=== PATIENT | female | born 1980 | race Caucasian/White ===

== ENCOUNTER → 2020-07-07 15:15 | Outpatient (BNVA) | payer MEDICAID, SELFPAY | PROVIDERS: Referring Provider Family Medicine; Visit Provider Internal Medicine | DX: E10.9 Type 1 diabetes mellitus without complications (principal); Z79.4 Long term (current) use of insulin | CPT/HCPCS: 99204 ==

== ENCOUNTER → 2020-07-29 15:45 | Outpatient (BNVA) | payer MEDICAID, SELFPAY | PROVIDERS: Visit Provider Obstetrics & Gynecology | DX: Z12.4 Encounter for screening for malignant neoplasm of cervix (principal) | CPT/HCPCS: 88175 ==

== ENCOUNTER → 2020-07-31 13:16 | Outpatient (BNVA) | payer MEDICAID, SELFPAY | PROVIDERS: Visit Provider Obstetrics & Gynecology | DX: Z20.828 Contact with and (suspected) exposure to other viral communicable diseases (principal) | CPT/HCPCS: 87635 ==

== ENCOUNTER 2020-08-06 11:16 | Observation (INO) | payer MEDICAID, SELFPAY ==
[2020-07-31 10:44] VITALS: BMI 23.8
--- NOTE | 2020-07-31 11:13 | ANES.PREANE2 ---
Pre-Anesthetic Assessment Pre-Anesthetic Assessment: Height/Weight: Height 1.37 m Weight 44.906 kg Preop Diagnosis: desired sterility. Proposed Procedure: Operation Date: 08/06/20 11:05 Proposed Procedures p bilateral Laparoscopic Tubal Fulguration 89387 z30.09(Bilateral) - Ruth Servin MD Familial anesthetic complications: none Was Beta Lynne taken within 24 hours: N/A Was Clonidine taken within 24 hours: N/A Social: Social History: No alcohol and No tobacco Exam: Pre-Anes Outpt Exam: alert, oriented x 3, clear to auscultation bilaterally and regular rate & rhythm Airway: Submandibular: WNL Cervical ROM: WNL MP: 1 Dentition: Full History/ROS: No significant history except as noted Pulmonary: Pulmonary: None reported CV/HEM: CV/HEM: None reported : : UTI and None reported Comments: urinary stoma. Hepatic: Hepatic: None reported GI: GI: None reported Metabolic: Metabolic: DM Comments: Type I diabetic. [facility]: Comments: spina bifida, AKA , wheelchair bound. Neuropsych: Neuropsych: Neuropathy Comments: patient states she has numbness and loss of motor function T10. Anesthetic Plan: ASA status: 3 Anesthesia: Anesthesia Evaluation and Local Only Other: Patient is requesting local only for procedure given spina bifida and numbness. Patient states she does not want a general anesthetic if avoidable. Risk of > 500 ml blood loss (7ml/kg in children): No PFSH Anesthesia PFSH: Medical History Fusion of spine of thoracic region Osteomyelitis Pressure sore Scoliosis Tethering of spinal cord Surgical History History of construction of external stoma of urinary system 01/2020 History of eye surgery Family History Family/Other Cancer maternal uncle, lung cancer Diabetes maternal uncle Grandfather Cancer skin cancer, paternal Family/Other Cancer maternal uncle, brain cancer Grandmother Diabetes maternal Denies family history of Ovarian cyst CAD (coronary artery disease) Clotting disorder Hyperlipidemia Chronic kidney disease (CKD) Anesthesia complication Bleeding disorder Hypertension Stroke Social History (Updated 07/29/20 @ 14:06 by MELANIE Covarrubias) Smoking and tobacco status: never smoked Second hand smoke exposure: Yes Alcohol intake: never Female Reproductive History: Date of last menstrual period: 06/29/20 Data Anesthesia Cardiac Studies: No Data to Display
[2020-08-06] VITALS (26 sets, daily range): BP systolic 102–129; BP diastolic 56–92; PULSE 90–128; RESP 15–18; TEMP 36.1–37.1; O2SAT 95–100
[2020-08-06 08:19] LABS: OR HCG Qualitative Urine Negative (Negative)
--- NOTE | 2020-08-06 08:44 | P.ANESUD_ITS ---
Pre-Anesthetic Update Pre-Anesthetic Assessment: Date of Surgery/Procedure: 08/06/20 Preop Linh gnosis: desires permanent sterilization Proposed Procedure: Operation Date: 08/06/20 09:20 Proposed Procedures p bilateral open Tubal Fulguration 77142 z30.09 12854(Bilateral) - Ruth Servin MD Any changes to Pre-Anesthetic Assessment?: No Last Intake: Intake Last Liquid Date 08/05/20 Last Liquid Time 23:00 Last Solid Date 08/05/20 Last Solid Time 19:30 Labs Last 48hrs: Laboratory Results - last 48 hr 08/06/20 07:49 Urine HCG, Qual Negative Vitals: Temperature 97.9 F 08/06/20 08:27 Temperature Source Temporal Artery S can 08/06/20 08:27 Pulse Rate 96 08/06/20 08:27 Respiratory Rate 16 08/06/20 08:27 Blood Pressure 124/92 08/06/20 08:27 Blood Pressure Linda n 102 08/06/20 08:27 Pulse Oximetry 99 08/06/20 08:27 Oxygen Delivery Me thod 08/06/20 08:27 Exam: Pre-Anes Outpt Exam: alert, oriented x 3, clear to auscultation bilaterally and regular rate & rhythm Cardiac Studies: No Data to Display
[2020-08-06 08:54] LABS: Glucose Point of Care 206 mg/dL (70-110)
[2020-08-06] MEDS: sodium chloride 0.9% 1,000 ML 30 ML IV ×2 (09:11→12:26)
--- NOTE | 2020-08-06 11:34 | PM.OP ---
Operative Report Date of procedure: August 06, 2020 Pre-op Diagnosis: desires permanent sterilization Post-op diagnosis: same Post-op Diagnosis: encased in adhesions. Post-op Findings: Severe bladder adhesions. Bladder encompassed every aspect of her pelvis. Uterus, tubes and ovaries Procedure Done: Left partial salpingectomy. small bladder dome repair. 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 Specimens removed/disposition: left parital fallopian tube Pathology: other Anesthesia: MAC Estimated blood loss (mL): 150 IV fluids (mL): 500 Urine output (mL): 200 Complications: Incidental cystotomy with repair. Unable to perform tubal ligation on right. Findings: Severe pelvic adhesions of bladder to entire pelvis including uterus and bowel. Right fallopian tube completely encased in bladder and adhesions. Uterus adhesed to bladder dome. Condition: stable Disposition: floor Procedure: The patient was taken to the operating room where monitored anesthesia was administered and found to be adequate. She was prepped and draped in the normal sterile fashion in the dorsal supine position. A Pfannenstiel skin incision was made and carried down to the underlying layer of fascia. The patient had a moderate amount of bleeding with every area that I cut. The fascia was tented up and the rectus muscles dissected off sharply. Hemostasis was achieved along the way. The peritoneum was entered bluntly with the digit. This incision was extended superiorly and inferiorly with good visualization of the bladder the left fallopian tube was anterior and adhesed to the bladder on the left. Using the vuoyant cautery well above the bladder the fallopian tube was clamped cauterized cut and removed. [place]ov[place] fashion I elevated the fimbria and clamped cauterized and removed the fimbria. There was excellent hemostasis. The bladder was completely covering the uterus. I was able to remove some filmy adhesions and mobilize it partially. As I removed one of the adhesions, it made a small hole in the bladder and urine started leaking. The bladder was extremely fragile. I clamped the hole with a Reyna clamp and the urine stop leaking. I closed the cystotomy with 3-0 Vicryl in a running fashion. I put a second imbricating layer of 3-0 Vicryl on top of that. I then moved on with the surgery. As I was attempting to locate the right tube and ovary, I noticed they were to large areas of aneurysm on the bladder. 1 on the left anterior the other on the posterior. The left anterior aneurysm, went down into the pelvis and I was concerned about another cystotomy if I probed any further. I oversewed the two aneurysms. Since she had so many adhesions, I placed surgicel on the rectus muscles. I closed the fasica with O-Vicryl in a running fashion. I closed the skin with absorbable. brigitte. A catheter was placed through her stoma with a lot of padding. Initially, the urine was bloody with some small clots, but the urine turned clear by recovery. She tolerated the procedure well. Sponge, lap and needle counts were correct times two. She was taken to recovery in stable condition.
[2020-08-06] MEDS: ondansetron 2 mg/ML SDV 2 mL 4 MG IVP (11:54)
[2020-08-06] MEDS: ketorolac 30 mg/mL INJ IVP (13:14)
--- NOTE | 2020-08-06 13:31 | ANE.PACU2 ---
Inpatient post-anesthesia follow up: Airway intact: Yes Vital signs: Temperature 97.7 F Pulse Rate 93 Respiratory Rate 18 Blood Pressure 117/82 Pulse Oximetry 98 Oxygen Delivery Me thod Room Air Oxygen Flow Rate 8 Fraction of Inspir ed Oxygen Hydration adequate: Yes Nausea and vomiting: No Pain level: 1 Mental status: Baseline
[2020-08-06] MEDS: acetaminophen 325 mg Tablet 650 MG PO (14:39)
[2020-08-06 14:49] LABS: Glucose Point of Care 236 mg/dL (70-110)
[2020-08-06] MEDS: enoxaparin 30 mg/0.3 mL Syringe SUBCUT (18:03)
[2020-08-06] MEDS: artificial tears Op Soln 15 mL Btl 1 DROP EYE-BOTH (18:50)
--- NOTE | 2020-08-06 19:05 | PC.NURSE ---
1845 Flushed pt parr with 120 mL of sterile water. Removed 60 mL. Pt had 500 mL urine after flush.
[2020-08-06 20:12] LABS: Glucose Point of Care 299 mg/dL (70-110)
[2020-08-06] MEDS: insulin glargine 100 units/1 mL 5 UNIT SUBCUT (20:45)
[2020-08-06] MEDS: lactated ringers 1,000 ML 50 ML IV (22:38)
--- NOTE | 2020-08-07 00:58 | PC.NURSE ---
0045 When attempting to empty patient's catheter, sign writer hand noted collection bag was empty and catheter was not draining. Health Center Manager irrigated catheter with 120 mls of sterile water, and removed 60mls. Patient tolerated well, with no complaints of discomfort. Catheter then began to drain, and patient had 400 mls of urine drained via catheter.
[2020-08-07 04:32] LABS: Hematocrit 30.7 % (37.0-47.0); Hemoglobin 10.1 g/dL (11.5-15.3); Mean Corpuscular HGB Conc 32.9 g/dL (30.0-36.0); Mean Corpuscular Hemoglobin 28.5 pg (28.0-34.0); Mean Corpuscular Volume 86.5 fL (81-99); Mean Platelet Volume 12.2 fL (7.4-10.4); Platelet Count 209 10^3/cmm (130-400); Red Blood Count 3.55 10^6/uL (4.1-5.3); Red Cell Distribution Width 15.8 % (12.1-15.1); White Blood Count 5.5 10^3/uL (4.0-10.0)
[2020-08-07] MEDS: HYDROcodone-acetaminophen 5-325 mg Tablet PO (04:32)
[2020-08-07 04:45] VITALS: BP 99/64; PULSE 112; RESP 17; TEMP 36.6; O2SAT 100
--- NOTE | 2020-08-07 04:55 | PC.NURSE ---
0445 When emptying patient's catheter, magazine writer noted scant amount of urinary output since last emptying two hours ago. Marketing Project Lead irrigated catheter with 120 mls of sterile water, and removed 60mls. Thick, chunky white sediment was noted in urine with irrigation. Patient tolerated well, with no complaints of discomfort. Catheter began draining better following irrigation, and patient had 200 mls of urine drained via catheter.
[2020-08-07 07:12] LABS: Glucose Point of Care 148 mg/dL (70-110)
[2020-08-07] MEDS: insulin glargine 100 units/1 mL 10 UNIT SUBCUT (07:44)
[2020-08-07 10:17] VITALS: BP 107/66; PULSE 115; RESP 17; TEMP 36.9; O2SAT 98
--- NOTE | 2020-08-07 11:52 | PM.DCS ---
Discharge Providers Date of Admission: 08/06/20 11:16 Date of Discharge: August 07, 2020 Attending Provider at Admission: Ruth Servin MD Attending Provider at Discharge: Ruth Servin MD Diagnoses at Discharge Discharge Diagnosis (1) Postoperative state: Status: Acute (2) Long-term insulin use: Status: Acute (3) Amputation above knee: Status: Acute (4) Sterilization consult: Status: Acute (5) Spina bifida: Status: Acute (6) Diabetes type I: Status: Acute Reason for Visit Reason for Visit: bilateral tubal fulguration Hospital Course Hospital Course The patient was admitted for surgery. She had an incidental cystotomy during the procedure. the bladder was repaired and a parr catheter was placed through her stoma. She had clear urine from post op until discharge and only had bloody urine directly after placement of the parr catheter. She had lovenox started POD 0 in the pm and will continue for 2 weeks post op due to the patient's inability to ambulate. She did well postoperatively and she was ready for discharge on day #1 POD#1 The patient is doing well this morning. She has tolerated a regular diet. Her pain is well controlled. She has been making good urine output. Her incision is clean/dry and intact. She received lovenox at 1800 hours last night. She is ready for discharge. Physical Exam Const: COMMON NORMALS: no acute distress, average body habitus, patient oriented x3, alert and well nourished GENERAL APPEARANCE: cooperative, comfortable, well kempt and well developed ORIENTATION/CONSCIOUSNESS: Yes awake, Yes oriented to person, Yes oriented to place and Yes oriented to time Resp: COMMON NORMALS: No use of accessory muscles EFFORT & INSPECTION: Yes able to speak in complete sentences GI: COMMON NORMALS: Soft to palpation and non-tender INSPECTION: Yes normal to inspection PALPATION: Yes Soft to palpation Neuro: COMMON NORMALS: patient oriented x3 SENSORIUM/ORIENTATION: Yes alert, Yes oriented to person, Yes oriented to place and Yes oriented to time Psych: APPEARANCE: Yes well kempt Skin: WOUNDS: Yes surgical site (clean/dry/intact) Urinary Catheter Management^: Parr: Cath Placed During This Visit: no Reason for Continuing Indwelling Catheter: Perioperative Use in Selected Surgeries Discharge Data Data Completed and Pending: Pending at discharge Category Date Time Status Pathology: Surgic al [PTH] Routine Pth 08/06/20 11:14 Received Labs from last 24 hours 08/07/20 08/07/20 08/06/20 07:09 04:22 20:07 WBC 5.5 RBC 3.55 L Hgb 10.1 L Hct 30.7 L MCV 86.5 MCH 28.5 MCHC 32.9 RDW 15.8 H Plt Count 209 MPV 12.2 H POC Glucose 148 H 299 H 08/06/20 14:42 WBC RBC Hgb Hct MCV MCH MCHC RDW Plt Count MPV POC Glucose 236 H Vitals: Last Vital Signs Temp 97.8 F 08/07/20 04:45 Pulse 112 H 08/07/20 04:45 Resp 17 08/07/20 04:45 BP 99/64 08/07/20 04:45 Pulse Ox 100 08/07/20 04:45 Discharge Plan Discharge Patient Disposition: Home Condition: Stable Prescriptions: New hydrocodone-acetaminophen 5-325 mg Tablet 1 tab PO Q6H PRN (Reason: Moderate To Severe Pain) Qty: 14 RF: 0 enoxaparin 30 mg/0.3 mL Syringe 30 mg SUBCUT Q24H 14 Days Qty: 4.2 RF: 0 Continued One-A-Day Women's Complete 18 mg-400 mcg- 25 mcg tablet 1 tab PO DAILY RF: 0 calcium citrate-vitamin D3 [Citracal + D Maximum] 315 mg-6.25 mcg (250 unit) tablet 4 tab PO DAILY RF: 0 esomeprazole magnesium 20 mg capsule,delayed release(DR/EC) 60 mg PO DAILY RF: 0 turmeric 400 mg capsule 800 mg PO DAILY RF: 0 cholecalciferol (vitamin D3) 250 mcg (10,000 unit) capsule 250 mcg PO DAILY RF: 0 potassium gluconate 600 mg (99 mg) tablet 1,800 mg PO DAILY RF: 0 zinc 50 mg tablet 50 mg PO DAILY RF: 0 biotin 5 mg capsule 5 mg PO DAILY RF: 0 oregano oil 1,500 mg capsule 1,500 mg PO DAILY RF: 0 ferrous sulfate 325 mg (65 mg iron) tablet 325 mg PO DAILY RF: 0 B-complex with vitamin C [Super B Complex-Vitamin C] Tablet 1 tab PO DAILY RF: 0 vitamin B complex [B Complex-Vitamin B12] Tablet 1 tab PO DAILY RF: 0 vitamin E 200 unit capsule 200 unit PO DAILY RF: 0 insulin aspart U-100 [Novolog Flexpen U-100 Insulin] 100 unit/mL (3 mL) insulin pen See Rx Instructions SUBCUT TID Qty: 15 RF: 3 Lantus Solostar U-100 Insulin 100 unit/mL (3 mL) insulin pen 10 unit SUBCUT BID Qty: 18 RF: 3 (DME) pen needle, diabetic [BD Polina 2nd Gen Pen Needle] 32 gauge x 5/32 needle See Rx Instructions .ROUTE .MEDSUPPLY Qty: 360 RF: 3 (DME) FreeStyle Test Strip See Rx Instructions .ROUTE .MEDSUPPLY Qty: 100 RF: 0 (DME) lancets [BD Ultra Fine Lancets] 33 gauge misc See Rx Instructions .ROUTE .MEDSUPPLY Qty: 100 RF: 0 (DME) blood-glucose meter [OneTouch Verio Meter] Misc See Rx Instructions .ROUTE .MEDSUPPLY Qty: 1 RF: 0 (DME) OneTouch Verio test strips Strip See Rx Instructions .ROUTE .MEDSUPPLY Qty: 360 RF: 0 (DME) lancets [OneTouch Delica Lancets] 33 gauge misc See Rx Instructions .ROUTE .MEDSUPPLY Qty: 360 RF: 0 Discharge Orders: Discharge Order (Routine); Ordered 08/07/20 Ordered By: Ruth Servin Referrals: [facility] [Other] (Please Call and ask for Hilda so [facility] Home Services can be established for you. ) Ruth Servin MD [Physician] - 08/12/20 1:00 pm (Your 1 week appointment is scheduled for 08/12/20 at 1:00 pm. Your 6 week appointment is scheduled for 09/09/20 at 12:45 pm.) John Aguillon MD [Referring] - 08/13/20 10:45 am (Please show up to your appointment at 10:45 AM. Bring medical cards and I.D. Your medical ride has been set up to transport you to and from this [place]. [place] [id number]. Transport will be at your home any time between 9:30 AM and 9:45 AM. [facility] medicaid ID number [id number]) Patient Instructions: Open Salpingo-oophorectomy (DC), OB Discharge Report, Opioid Safety, Post Anesthesia Care Discharge Attestations Time Spent in Discharge Care*: less than 30 min Quality Metrics Clinical Quality Measures During this hospital stay, did patient experience: None Coding Level of Care Code Acute Chg FW DC note Diagnoses Postoperative state Z98.890 Long-term insulin use Z79.4 Amputation above knee S78.119A Sterilization consult Z30.09 Spina bifida Q05.9 Diabetes type I E10.9
[2020-08-07 12:06] LABS: Glucose Point of Care 220 mg/dL (70-110)
[2020-08-07 14:30] VITALS: BP 115/72; PULSE 108; RESP 17; TEMP 37.1; O2SAT 99
[2020-08-07 15:00] VITALS: BP 115/72; PULSE 108; RESP 17; TEMP 37.1; O2SAT 99
== END 2020-08-07 15:00 | disposition home or self-care (01) ==
LOC: OBGYN 11:16
PROVIDERS: Anesthesiology; Admitting Provider Obstetrics & Gynecology; Visit Provider Obstetrics & Gynecology
PROC: (CPT 58670; principal; 2020-08-06 09:10)
DX: Z30.2 Encounter for sterilization (principal); N32.89 Other specified disorders of bladder; E10.9 Type 1 diabetes mellitus without complications; Z79.4 Long term (current) use of insulin; S78.119A Complete traumatic amputation at level between unspecified hip and knee, initial encounter; X58.XXXA Exposure to other specified factors, initial encounter; Q05.9 Spina bifida, unspecified; Z30.09 Encounter for other general counseling and advice on contraception
CPT/HCPCS: 58700; 36415; 36416; 82962; 84703; 85027; 88302; 96372; C9290; G0378; J0690; J1100; J1650; J1815 ×2; J1885; J2250; J2405; J2704; J3010; J3490; J7030

== ENCOUNTER 2020-08-11 16:58 | Observation (INO) | payer MEDICAID, SELFPAY ==
[2020-08-11 17:36] VITALS: BP 105/68; PULSE 123; RESP 18; TEMP 37.2; O2SAT 99; BMI 24.0
--- NOTE | 2020-08-11 19:46 | W.ED.FEMALGU ---
HPI - Female Genitourinary General: Chief complaint: Urogenital-Female Stated complaint: POST OP COMPLICATIONS Time Seen by Provider: 08/11/20 18:34 History of Present Illness: HPI Narrative: 40-year-old female presents with complications of at indwelling [place] and a urinary stoma. Patient has an extensive urinary tract surgical history with bladder made out of intestine. Patients stoma was not draining correctly and a Houston was placed a few days ago. The Houston was not draining last night and they presented to ER in [facility] and had a exchange. She had issues once again today. She called her surgeon who instructed her to come to the office but there was a misunderstanding came to the ER. Discussed with Dr. Servin who would like the Houston exchanged if possible. Date of Last Menstrual Period: 08/06/20 Review of Systems Const: Denies: fever(s) or chills Card: Denies: chest pain or palpitations Resp: Denies: dyspnea or productive cough GI: Reports: other (Please see HPI) : Denies: other (Please see HPI) PFSH ED PFSH: Medical History Fusion of spine of thoracic region Osteomyelitis Pressure sore Scoliosis Tethering of spinal cord Surgical History History of construction of external stoma of urinary system 01/2020 History of eye surgery Family History Family/Other Cancer maternal uncle, lung cancer Diabetes maternal uncle Grandfather Cancer skin cancer, paternal Family/Other Cancer maternal uncle, brain cancer Grandmother Diabetes maternal Denies family history of Ovarian cyst CAD (coronary artery disease) Clotting disorder Hyperlipidemia Chronic kidney disease (CKD) Anesthesia complication Bleeding disorder Hypertension Stroke Social History Smoking and tobacco status: never smoked Second hand smoke exposure: Yes Alcohol intake: never Female Reproductive History: Date of last menstrual period: 08/06/20 Course Vital Signs: Vital signs: Vital Signs Temperature 99.0 F 08/11/20 17:36 Pulse Rate 123 H 08/11/20 17:36 Respiratory Rate 18 08/11/20 17:36 Blood Pressure 105/68 08/11/20 17:36 Pulse Oximetry 99 08/11/20 17:36 MDM - Female MDM Narrative: Medical decision making narrative: Discussed case with Dr. Servin. Due to patient's complicated surgical history and seroma versus abscess in her lower abdominal wall. We will admit her for observation. She will recheck on her in the morning and determine further management at that time Imaging Data: CT Abd/Pel: Radiologist's impression: CT/CT abdomen pelvis wo con [id number] IMPRESSION: 1. A transabdominal catheter is present within the bladder lumen. The bladder lumen is mostly collapsed around the catheter with a small amount of fluid and air in the bladder. 2. Trace free fluid in the lower abdomen/pelvis most likely secondary to the peritoneal shunt and recent postsurgical changes. 3. Trace free air in the lower abdomen/pelvis likely postsurgical. 4. A nonspecific fluid collection within the superficial fat of the lower abdominal wall likely reflecting postoperative seroma. Abscess is also possible in the appropriate clinical setting. 5. Lobulated , thickened soft tissue at the anus is indeterminate on CT. Discharge Plan Discharge Patient Disposition: Placed in Observation Clinical Impression: Postoperative state Condition: Stable Prescriptions: No Action One-A-Day Women's Complete 18 mg-400 mcg- 25 mcg tablet 1 tab PO DAILY@0900 RF: 0 calcium citrate-vitamin D3 [Citracal + D Maximum] 315 mg-6.25 mcg (250 unit) tablet 4 tab PO DAILY@0900 RF: 0 turmeric 400 mg capsule 800 mg PO DAILY@0900 RF: 0 cholecalciferol (vitamin D3) 250 mcg (10,000 unit) capsule 250 mcg PO DAILY@0900 RF: 0 potassium gluconate 600 mg (99 mg) tablet 1,800 mg PO DAILY@0900 RF: 0 zinc 50 mg tablet 50 mg PO DAILY@0900 RF: 0 biotin 5 mg capsule 5 mg PO DAILY@0900 RF: 0 oregano oil 1,500 mg capsule 1,500 mg PO DAILY@0900 RF: 0 ferrous sulfate 325 mg (65 mg iron) tablet 325 mg PO DAILY@0900 RF: 0 B-complex with vitamin C [Super B Complex-Vitamin C] Tablet 1 tab PO DAILY@0900 RF: 0 vitamin B complex [B Complex-Vitamin B12] Tablet 1 tab PO DAILY@0900 RF: 0 vitamin E 200 unit capsule 200 unit PO DAILY@0900 RF: 0 insulin aspart U-100 [Novolog Flexpen U-100 Insulin] 100 unit/mL (3 mL) insulin pen See Rx Instructions SUBCUT TID Qty: 15 RF: 3 (DME) pen needle, diabetic [BD Polina 2nd Gen Pen Needle] 32 gauge x 5/32 needle See Rx Instructions .ROUTE .MEDSUPPLY Qty: 360 RF: 3 (DME) FreeStyle Test Strip See Rx Instructions .ROUTE .MEDSUPPLY Qty: 100 RF: 0 (DME) lancets [BD Ultra Fine Lancets] 33 gauge misc See Rx Instructions .ROUTE .MEDSUPPLY Qty: 100 RF: 0 (DME) blood-glucose meter [OneTouch Verio Meter] Misc See Rx Instructions .ROUTE .MEDSUPPLY Qty: 1 RF: 0 (DME) OneTouch Verio test strips Strip See Rx Instructions .ROUTE .MEDSUPPLY Qty: 360 RF: 0 (DME) lancets [OneTouch Delica Lancets] 33 gauge misc See Rx Instructions .ROUTE .MEDSUPPLY Qty: 360 RF: 0 hydrocodone-acetaminophen 5-325 mg Tablet 1 tab PO Q6H PRN (Reason: Moderate To Severe Pain) Qty: 14 RF: 0 enoxaparin 30 mg/0.3 mL Syringe 30 mg SUBCUT Q24H 14 Days Qty: 4.2 RF: 0 magnesium 1 tab PO DAILY@0900 RF: 0 Lantus Solostar U-100 Insulin 100 unit/mL (3 mL) insulin pen See Rx Instructions .ROUTE .COMPLEX RF: 0 Discharge Diet: Usual diet Discharge Activity: Resume usual activity Coding Level of Care Code ED Wire Galvanizer for Quangg Denilson
--- NOTE | 2020-08-11 20:15 | CTR_ITS ---
PROCEDURE INFORMATION: Exam: CT Abdomen And Pelvis Without Contrast Exam date and time: 08/11/2020 8:35 PM Age: 40 years old Clinical indication: Abdominal pain; Localized; Lower; Prior surgery; Surgery type: Lumbar fusion. Indwelling parr. Urinary stoma. ; Patient HX: Patient had indwellling parr placed on 08/06/2020. States no urinary output and C/O pelvic pain. ; Additional info: Recent bladder surgery, concerns for leakage, rupture TECHNIQUE: Imaging protocol: Computed tomography of the abdomen and pelvis without contrast. Radiation optimization: All CT scans at this facility use at least one of these dose optimization techniques: automated exposure control; mA and/or kV adjustment per patient size (includes targeted exams where dose is matched to clinical indication); or iterative reconstruction. COMPARISON: No relevant prior studies available. RADIATION DOSE METRICS: Total DLP (mGy-cm): 894.36 FINDINGS: Tubes, catheters and devices: Peritoneal shunt catheter tubing noted. Lungs: The visualized lung bases are clear. Liver: Normal size and density. No focal mass. Gallbladder and bile ducts: No intrahepatic or extrahepatic biliary dilitation. No calcified stones. Pancreas: No evidence of mass. No ductal dilation. Spleen: No splenomegaly or mass. Adrenal glands: Normal. Kidneys and ureters: No stones or hydronephrosis. No evidence of focal mass. Stomach and bowel: A large amount of formed stool throughout the colon. Suture line noted in the proximal colon. No signs of obstruction. No significant diverticula. Appendix: No evidence of appendicitis. Intraperitoneal space: Suspected trace free air in the lower, anterior abdomen/pelvis. Trace free fluid in the abdomen/pelvis. No evidence abscess. Vasculature: No concerning abnormalities. Lymph nodes: No lymphadenopathy. Urinary bladder: The urinary bladder is collapsed around a transabdominal catheter. There is a small amount of air in the bladder. Reproductive: Normal CT appearance for age. Bones/joints: Status post lumbar fusion with severe scoliosis. 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 Soft tissues: Postsurgical changes of the lower abdominal wall. Trace free air within the subcutaneous soft tissues of the abdominal wall. Small amount of fat stranding and an approximately 2 x 1.2 x 11 cm (SAT) superficial fluid collection. Lobulated irregular soft tissue around the anus. CT/CT abdomen pelvis wo con [id number] IMPRESSION: 1. A transabdominal catheter is present within the bladder lumen. The bladder lumen is mostly collapsed around the catheter with a small amount of fluid and air in the bladder. 2. Trace free fluid in the lower abdomen/pelvis most likely secondary to the peritoneal shunt and recent postsurgical changes. 3. Trace free air in the lower abdomen/pelvis likely postsurgical. 4. A nonspecific fluid collection within the superficial fat of the lower abdominal wall likely reflecting postoperative seroma. Abscess is also possible in the appropriate clinical setting. 5. Lobulated , thickened soft tissue at the anus is indeterminate on CT. Radiation Dose CTDIVOL = (mGy): DLP = 894.36 (mGy-cm)
--- NOTE | 2020-08-11 22:25 | PC.NURSE ---
Spoke with Abel Felix and Dr. Bedolla. Approval for pt mother/caregiver to stay overnight outside of visiting hours due to pt being total care.
[2020-08-11 22:41] LABS: Basophils % 0.2 %; Eosinophils % 0.2 %; Hematocrit 30.6 % (37.0-47.0); Hemoglobin 9.5 g/dL (11.5-15.3); Lymphocytes # 1.2 10^3/uL (0.8-4.8); Lymphocytes % 12.6 %; Mean Corpuscular Hemoglobin 28.1 pg (28.0-34.0); Mean Corpuscular Volume 90.5 fL (81-99); Monocytes # 0.8 10^3/uL (0.2-0.9); Monocytes % 8.8 %; Neutrophils # 7.11 10^3/uL (1.8-7.7); Neutrophils % 77.8 %; Nucleated Red Blood Cells % 0 %; Platelet Count 222 10^3/cmm (130-400); Red Blood Count 3.38 10^6/uL (4.1-5.3); Red Cell Distribution Width 16.4 % (12.1-15.1); White Blood Count 9.1 10^3/uL (4.0-10.0)
[2020-08-11 22:44] VITALS: PULSE 122; RESP 16; O2SAT 98
[2020-08-11 22:54] LABS: Anion Gap 23.3 (5-19); Blood Urea Nitrogen 9 mg/dL (6-20); Carbon Dioxide 13 mmol/L (22-29); Chloride 100 mmol/L (98-107); Creatinine Clr Calc Pharmacy 178.4961; Glomerular Filtration Rate 246.4 mL/min (90-130); Glucose 188 mg/dL (65-115); Osmolality Calculated 280 mOsm/kg (285-295); Potassium 3.3 mmol/L (3.5-5.1); Sodium 133 mmol/L (136-145)
--- NOTE | 2020-08-11 22:56 | PC.NURSE ---
pt report called to Juli VILLAVICENCIO in SBAR format.
[2020-08-11 23:26] VITALS: BP 99/67; PULSE 117; RESP 18; TEMP 37.2; O2SAT 97
[2020-08-12] MEDS: HYDROcodone-acetaminophen 5-325 mg Tablet PO ×2 (00:20→12:27)
[2020-08-12] MEDS: lactated ringers 1,000 ML 75 ML IV (00:21)
--- NOTE | 2020-08-12 00:45 | PC.NURSE ---
pt stated to nurse that she takes Lantus 10 U in the AM and 5U in the PM, Novalog 1 unit for every 50 > 150 plus 1 Unit for every 10 grams of carbohydrates at breakfast and lunch and 1 unit for every 12 grams of carbohydrates at dinner. Blood sugar checks are done Morning, AC and HS. Pt stated that she did not want to take her Lantus tonight since she had not ate today.
--- NOTE | 2020-08-12 00:53 | PC.NURSE ---
Left leg and and partial pelvis amputation
[2020-08-12 03:40] VITALS: BP 99/65; PULSE 109; RESP 18; O2SAT 98
[2020-08-12 07:22] LABS: Glucose Point of Care 226 mg/dL (70-110)
[2020-08-12] MEDS: insulin glargine 100 units/1 mL 10 UNIT SUBCUT (07:31)
--- NOTE | 2020-08-12 08:58 | P.HP_ITS ---
Providers/Chief Complaint Admitting Physician: Ruth Servin MD Chief Complaint: POST OP COMPLICATIONS History of Present Illness Mary Anne Israel is a 40 year old female who had surgery on 08/06/20. She had a tubal ligation. She has had extensive bladder and pelvic surgeries and during my surgery, she was noted to have extensive bladder adhesions as well as two areas of bladder aneurysm. She also had a very small cystotomy during my procedure. The cystotomy was repaired in a double layer closure and the aneurysms were oversewn to reinforce them. She went home on Post op day #1 and was doing very well. She reports that on Monday, they took a trip to [place] for an appointment. She was in the car for 6 hours and when she returned, she noticed that her abdomen was distended and her catheter had stopped draining urine. She went to her local ER and they replaced the catheter and it was draining clear urine again. But, not long after that, the catheter stopped draining again. They became very concerned. Her abdomen was distended, the catheter wasn't draining and I asked her to come to the office for evaluation. She went to the ER, due to being after hours at the clinic. The catheter was replaced, but there was no urine returned. A CT scan showed that everything appeared normal except a seroma was present in the bladder. The patient states that she continues to take her lovenox and that her pain has been well controlled, only taking a few of her pain medications. She typically stays pretty constipated as this makes it easier for her due to mobility. Review of Systems General: Reports: 10 or more systems reviewed and unremarkable except in HPI and below Medications/Allergies Home Medications Medication Instructions Recorded Confirmed Last Taken Type biotin 5 mg capsule 5 mg PO DAILY@0900 06/22/20 08/11/20 08/10/20 History calcium citrate 315 mg 4 tab PO DAILY@0900 tab 06/22/20 08/11/20 08/10/20 History calcium-vitamin D3 6.25 mcg (250 unit) tablet cholecalciferol (vitamin D3) 250 250 mcg PO DAILY@0900 06/22/20 08/11/20 08/10/20 History mcg (10,000 unit) capsule yarwenbu-dlzovhw-rxxh-iron 18 1 tab PO DAILY@0900 tab 06/22/20 08/11/20 08/10/20 History mg-FA 400 mcg-vit K 25 mcg tablet potassium gluconate 600 mg (99 mg) 1,800 mg PO DAILY@0900 tab 06/22/20 08/11/20 08/10/20 History tablet turmeric 400 mg capsule 800 mg PO DAILY@0900 cap 06/22/20 08/11/20 08/10/20 History zinc 50 mg tablet 50 mg PO DAILY@0900 06/22/20 08/11/20 08/10/20 History B-complex with vitamin C 1 tab PO DAILY@0900 07/07/20 08/11/20 08/10/20 History ferrous sulfate 325 mg (65 mg 325 mg PO DAILY@0900 07/07/20 08/11/20 08/10/20 History iron) tablet insulin aspart U-100 100 unit/mL See Rx Instructions SUBCUT TID #15 07/07/20 08/11/20 08/10/20 Rx (3 mL) subcutaneous pen ml oregano oil 1,500 mg capsule 1,500 mg PO DAILY@0900 cap 07/07/20 08/11/20 08/10/20 History pen needle, diabetic 32 gauge x #360 ea 07/07/20 08/11/20 Unknown Rx vitamin B complex 1 tab PO DAILY@0900 07/07/20 08/11/20 08/10/20 History vitamin E 200 unit capsule 200 unit PO DAILY@0900 07/07/20 08/11/20 08/10/20 History blood sugar diagnostic #100 ea 07/10/20 08/11/20 Unknown Rx blood sugar diagnostic #360 ea 07/10/20 08/11/20 Unknown Rx blood-glucose meter #1 ea 07/10/20 08/11/20 Unknown Rx lancets 33 gauge #100 ea 07/10/20 08/11/20 Unknown Rx lancets 33 gauge #360 ea 07/10/20 08/11/20 Unknown Rx enoxaparin 30 mg SUBCUT Q24H 14 Days #4.2 ml 08/07/20 08/11/20 08/09/20 Rx hydrocodone-acetaminophen 1 tab PO Q6H PRN #14 tab 08/07/20 08/11/20 Unknown Rx Lantus Solostar U-100 Insulin See Rx Instructions .ROUTE .COMPLEX 04/08/11/20 08/10/20 History magnesium 1 tab PO DAILY@0900 08/11/20 08/11/20 08/10/20 History Allergies Allergy/AdvReac Type Severity Reaction Status Date / Time latex Allergy rash, Verified 08/11/20 17:35 itchy eyes, respiratory symptoms levofloxacin [From Levaquin] Allergy hair loss, Verified 08/11/20 17:35 stomach upset vancomycin AdvReac red man Verified 08/11/20 17:35 syndrome PFSH Acute PFSH: Medical History Fusion of spine of thoracic region Osteomyelitis Pressure sore Scoliosis Tethering of spinal cord Surgical History History of construction of external stoma of urinary system 01/2020 History of eye surgery Family History Family/Other Cancer maternal uncle, lung cancer Diabetes maternal uncle Grandfather Cancer skin cancer, paternal Family/Other Cancer maternal uncle, brain cancer Grandmother Diabetes maternal Denies family history of Ovarian cyst CAD (coronary artery disease) Clotting disorder Hyperlipidemia Chronic kidney disease (CKD) Anesthesia complication Bleeding disorder Hypertension Stroke Social History Smoking and tobacco status: never smoked Second hand smoke exposure: Yes Alcohol intake: never Female Reproductive History: Date of last menstrual period: 08/06/20 Vitals/I&O/Wt Last Vital Signs Temp 98.9 F 08/11/20 23:26 Pulse 109 H 08/12/20 03:40 Resp 18 08/12/20 03:40 BP 99/65 08/12/20 03:40 Pulse Ox 98 08/12/20 03:40 08/11/20 08/12/20 08/12/20 22:59 06:59 14:59 Output Total 875 / 875 150 / 150 Balance -875 / -875 -150 / -150 Weight last 48 hrs Weight 100 lb Physical Exam Const: COMMON NORMALS: no acute distress, average body habitus, patient oriented x3, no limitations, alert and well nourished GENERAL APPEARANCE: cooperative, comfortable, well kempt and well developed ORIENTATION/CONSCIOUSNESS: Yes awake, Yes oriented to person, Yes oriented to place and Yes oriented to time Resp: COMMON NORMALS: normal respiratory effort EFFORT & INSPECTION: Yes able to speak in complete sentences GI: INSPECTION: Yes abdominal wall ecchymosis (bruising near incision), Yes abdominal distension, Yes incision Inspection of incision: healing well (well reapproximated and healing nicely) and Yes GI ostomy present (urinary ostomy in RUQ) Urinary Catheter Management^: Suprapubic: Cath Placed During This Visit: no Reason for Continuing Indwelling Catheter: Chronic Indwelling Urinary Catheter on Admission Data : 08/11/20 22:25 08/11/20 22:25 A&P Assessment and plan (1) Postoperative state: Patient having issues with catheter getting clogged. The patient has part of her bladder make from intestine. There is a lot of mucous produced and she needs to flush it frequently. Due to her trip on Monday, she may not have flushed as often as she did at home and that may have been why it clogged. The catheter IS draining urine now at about 100 ml/hr. There is a seroma present and I plan to speak with Dr Miner about this in the AM. Patient will be admitted for observation since this is her second ER visit in a day. I want to watch her urine output and assess how she does. Status: Acute Attestations Medical Necessity Statement*: The patient will be admitted for observation for postop complication. Coding Level of Care Code Acute Corrugator Helper for Alan Oreilly Diagnoses Postoperative state Z98.890
[2020-08-12 09:16] VITALS: BP 104/72; PULSE 125; RESP 16; TEMP 36.2
--- NOTE | 2020-08-12 09:18 | PM.OBGYDC ---
Discharge Providers DISTRIBUTOR SALES CONSULTANT Date of Admission: 08/11/20 21:48 Date of Discharge: 08/14/20 Attending Provider at Admission: Ruth Servin MD Attending Provider at Discharge: Ruth Servin MD Diagnoses at Discharge Discharge Diagnosis (1) Postoperative state: Status: Acute Reason for Visit Reason for Visit: POST OP COMPLICATIONS Hospital Course Hospital Course The patient was admitted from the ER with complaints of her catheter wasn't draining. She had been on a six hour car trip, the day before. Earlier today, she had noticed that her catheter wasn't draining. She went to her local ER and they replaced the catheter. it was working fine and then stopped draining again. At the same time, she noticed that her abdomen was getting rigid. Her mother was convinced that her abdomen was filling up with urine. She came to the ER. The catheter was replaced, but there was no return. She had a CT scan performed which showed a seroma in her incision and a lot of stool in her colon. I was told that she had a seroma in her bladder. She was admitted overnight to consult with urology in the AM. I rounded on the patient and examined her. Her abdomen was rigid due to stool. Her incision was clean/dry and intact. Her catheter was draining about 100-150 ml per hour. She was very stable and no reason to do anything further. She was discharged home in stable condition to follow up next week for catheter removal. Physical Exam Const: COMMON NORMALS: no acute distress, average body habitus, patient oriented x3, alert and well nourished GENERAL APPEARANCE: cooperative, comfortable, well kempt and well developed ORIENTATION/CONSCIOUSNESS: Yes awake, Yes oriented to person, Yes oriented to place and Yes oriented to time Resp: COMMON NORMALS: normal respiratory effort EFFORT & INSPECTION: Yes able to speak in complete sentences Neuro: COMMON NORMALS: patient oriented x3 SENSORIUM/ORIENTATION: Yes alert, Yes oriented to person, Yes oriented to place and Yes oriented to time Psych: APPEARANCE: Yes well kempt Skin: WOUNDS: Yes surgical site (clean/dry and intact. stoma pink) Urinary Catheter Management^: Suprapubic: Cath Placed During This Visit: no Reason for Continuing Indwelling Catheter: Chronic Indwelling Urinary Catheter on Admission Discharge Data Data Completed and Pending: Completed Studies During Hospitalization Category Date Time Status CT abdomen pelvis wo con [id number] Urge nt Cat Scan 08/11/20 20:15 Completed Labs from last 24 hours 08/12/20 08/11/20 08/11/20 07:18 22:25 22:25 WBC 9.1 RBC 3.38 L Hgb 9.5 L Hct 30.6 L MCV 90.5 MCH 28.1 MCHC 31.0 RDW 16.4 H Plt Count 222 MPV 12.0 H Neut % (Auto) 77.8 Lymph % (Auto) 12.6 [place] % (Auto) 8.8 Eos % (Auto) 0.2 Baso % (Auto) 0.2 Neut # (Auto) 7.11 Lymph # (Auto) 1.2 [place] # (Auto) 0.8 Eos # (Auto) 0.0 Baso # (Auto) 0.0 Nucleated RBC % (a uto) 0 Nucleated RBCs # 0.0 Sodium 133 L Potassium 3.3 L Chloride 100 Carbon Dioxide 13 L Anion Gap 23.3 H BUN 9 Creatinine 0.3 L GFR Calculation 246.4 H Glucose 188 H POC Glucose 226 H Calculated Osmolal ity 280 L Calcium 8.0 L Vitals: Last Vital Signs Temp 97.2 F L 08/12/20 09:16 Pulse 125 H 08/12/20 09:16 Resp 16 08/12/20 09:16 BP 104/72 08/12/20 09:16 Pulse Ox 98 08/12/20 03:40 Discharge Plan Discharge Patient Disposition: Home Condition: Stable Prescriptions: Continued One-A-Day Women's Complete 18 mg-400 mcg- 25 mcg tablet 1 tab PO DAILY@0900 RF: 0 calcium citrate-vitamin D3 [Citracal + D Maximum] 315 mg-6.25 mcg (250 unit) tablet 4 tab PO DAILY@0900 RF: 0 turmeric 400 mg capsule 800 mg PO DAILY@0900 RF: 0 cholecalciferol (vitamin D3) 250 mcg (10,000 unit) capsule 250 mcg PO DAILY@0900 RF: 0 potassium gluconate 600 mg (99 mg) tablet 1,800 mg PO DAILY@0900 RF: 0 zinc 50 mg tablet 50 mg PO DAILY@0900 RF: 0 biotin 5 mg capsule 5 mg PO DAILY@0900 RF: 0 oregano oil 1,500 mg capsule 1,500 mg PO DAILY@0900 RF: 0 ferrous sulfate 325 mg (65 mg iron) tablet 325 mg PO DAILY@0900 RF: 0 B-complex with vitamin C [Super B Complex-Vitamin C] Tablet 1 tab PO DAILY@0900 RF: 0 vitamin B complex [B Complex-Vitamin B12] Tablet 1 tab PO DAILY@0900 RF: 0 vitamin E 200 unit capsule 200 unit PO DAILY@0900 RF: 0 insulin aspart U-100 [Novolog Flexpen U-100 Insulin] 100 unit/mL (3 mL) insulin pen See Rx Instructions SUBCUT TID Qty: 15 RF: 3 (DME) pen needle, diabetic [BD Polina 2nd Gen Pen Needle] 32 gauge x 5/32 needle See Rx Instructions .ROUTE .MEDSUPPLY Qty: 360 RF: 3 (DME) FreeStyle Test Strip See Rx Instructions .ROUTE .MEDSUPPLY Qty: 100 RF: 0 (DME) lancets [BD Ultra Fine Lancets] 33 gauge misc See Rx Instructions .ROUTE .MEDSUPPLY Qty: 100 RF: 0 (DME) blood-glucose meter [OneTouch Verio Meter] Misc See Rx Instructions .ROUTE .MEDSUPPLY Qty: 1 RF: 0 (DME) OneTouch Verio test strips Strip See Rx Instructions .ROUTE .MEDSUPPLY Qty: 360 RF: 0 (DME) lancets [OneTouch Delica Lancets] 33 gauge misc See Rx Instructions .ROUTE .MEDSUPPLY Qty: 360 RF: 0 hydrocodone-acetaminophen 5-325 mg Tablet 1 tab PO Q6H PRN (Reason: Moderate To Severe Pain) Qty: 14 RF: 0 enoxaparin 30 mg/0.3 mL Syringe 30 mg SUBCUT Q24H 14 Days Qty: 4.2 RF: 0 magnesium 1 tab PO DAILY@0900 RF: 0 Lantus Solostar U-100 Insulin 100 unit/mL (3 mL) insulin pen See Rx Instructions .ROUTE .COMPLEX RF: 0 Discharge Orders: Discharge Order (Routine); Ordered 08/12/20 Ordered By: Ruth Servin Referrals: Ruth Servin MD [Physician] - (Keep scheduled appointments. Your next scheduled appointment is on 08/18/2020 at 10:[address] Servin.) Discharge Diet: Usual diet Discharge Activity: Resume usual activity Patient Instructions: Laparoscopic Tubal Ligation (DC), How to Care for Your Suprapubic Catheter (GEN), OB Abdominal Surgery - [facility], OB Discharge Report, OB Food/Drug Interaction Guide, Opioid Safety Discharge Attestations DISTRIBUTOR SALES CONSULTANT Time Spent in Discharge Care*: less than 30 min Coding Level of Care Code Acute Foreclosure Field Inspector for Chg Fwd Diagnoses Postoperative state Z98.890
--- NOTE | 2020-08-12 10:34 | P.HPUD_ITS ---
Surgery/Procedure H&P Update DATE OF PROCEDURE: August 06, 2020 DATE H&P PERFORMED: 07/29/20 H&P UPDATE INFORMATION: I have reviewed H&P completed within last 30 days, I have examined patient prior to procedure, No changes to prior documentation, Changes to prior documentation as noted here, H&P to be scanned into chart and [place] [facility] date indicated PREOP DIAGNOSIS: desires permanent sterilization
[2020-08-12 12:22] LABS: Glucose Point of Care 233 mg/dL (70-110)
[2020-08-12 13:33] VITALS: BP 104/72; PULSE 125; RESP 16; TEMP 36.2
== END 2020-08-12 13:30 | disposition home or self-care (01) ==
LOC: ER 21:51 → OBGYN 22:05
PROVIDERS: Admitting Provider Obstetrics & Gynecology; Emergency Provider Student in an Organized Health Care Education/Training Program; Visit Provider Obstetrics & Gynecology
DX: T82.41XA Breakdown (mechanical) of vascular dialysis catheter, initial encounter (principal); Z98.890 Other specified postprocedural states
CPT/HCPCS: 36416; 74176; 80048; 82962; 85025; 96360; 96361; 96372; 99285; G0378; J1815 ×2

== ENCOUNTER 2021-10-24 23:13 | Inpatient (IN) | payer MEDICAID, SELFPAY ==
[2021-10-24] VITALS (10 sets, daily range): BP systolic 124–149; BP diastolic 89–105; PULSE 151–163; RESP 22–35; TEMP 36.8; O2SAT 99–100; BMI 26.0
--- NOTE | 2021-10-24 23:00 | PC.NURSE ---
Transfer Note Patient transferred to [facility] ICU from [facility] ER dept. via EMS. Patient oriented to environment and equipment. Covering service notified. Orders reviewed and will continue to monitor. Upon arrival patient has IV to left pinky finger and a left neck EJ. Both lines flush easily. Wound noted to perineal area, open to air-no other wounds noted at this time. Patient is alert/oriented x4.
--- NOTE | 2021-10-24 23:12 | XRR_ITS ---
PROCEDURE INFORMATION: Exam: XR Chest Exam date and time: 10/24/2021 11:30 PM Age: 41 years old Clinical indication: Angina; Additional info: Chest pain TECHNIQUE: Imaging protocol: Radiologic exam of the chest. Views: 1 view. COMPARISON: CT abdomen pelvis con [id number] 08/11/2020 8:57 PM FINDINGS: Lungs: The lung bases are suboptimally assessed due to technique however the upper lungs are clear of focal consolidation. Elevated left hemidiaphragm. Pleural spaces: Unremarkable. No pleural effusion. No pneumothorax. Heart/Mediastinum: Cardiac silhouette appears normal in size. No obvious vascular congestion. Vasculature: Right IJ vascular sheath with the tip in the lower SVC. Bones/joints: Severe rightward scoliosis of the thoracolumbar spine. Partially visualized lower thoracic/lumbar spine fixation device. No acute osseous findings. Gastrointestinal tract: Distended air-filled gastric lumen is present. Other findings: Single view was submitted. XR/XR chest 1V portable [id number] IMPRESSION: No obvious acute consolidation. Suboptimal lung base assessment. Followup including lateral view may be obtained if clinically indicated.
--- NOTE | 2021-10-24 23:19 | P.HP_ITS ---
Providers/Chief Complaint Admitting Physician: Ivette Breen MD Chief Complaint: DKA History of Present Illness Mary Anne Israel is a 41 year old female with a past medical history of type 1 diabetes mellitus, transferred from [facility] today due to diabetic ketoacidosis. Presented to the outside hospital with chief complaints of generalized weakness chest and abdominal pain over the past 2 to 3 days. Notable labs as below. She is currently running insulin drip and has received IV hydration. Patient reports she has episodes of DKA with frequency ranging approximately twice a week. She states that her trigger is not always identifiable, however she thinks that current episode may have been precipitated by oropharyngeal candidiasis and intertrigo. She has been taking oregano supplements for the same as she states that fluconazole and nystatin have not provided effective relief in the past. Denies any fever, URI symptoms, cough dyspnea palpitations or nausea vomiting or diarrhea. She appears significantly dehydrated. Notable labs from [facility] are as follows: Negative urine beta-hCG. UA with 1+ protein, 4+ ketones, negative nitrite negative leukocytes, large clumps of WBC. COVID PCR not detected. Pro-Jairo 0.08, WBC 12.9. ABG with pH 7.05 PCO2 10 PO2 135, bicarb 3 O2 sat 97.6 at 5:30 PM. Glucose 323. Creatinine 0.5. Normal LFTs. Negative troponins. There has been concern for possible pneumoperitoneum on chest x-ray therefore this was followed up with CT of the abdomen which showed gastric distention, otherwise negative for any ileus or SBO. No pneumoperitoneum was identified. Patient does not have any current abdominal distention or other GI symptoms. Her significant past medical history includes spina bifida, wheelchair-bound as a result of the same, multiple abdominal and pelvic surgeries, right leg AKA and pelvic bone debridement history because of osteomyelitis 2019 (in [place]). Had multiple spinal surgeries with hardware in place. Additionally has a chronic pelvic pressure ulcers. She has also urostomy which she intermittently self caths at home. States that this was because of urethral damage from chronic wheelchair use and inability to place [place] ever since. She is incontinent, however passes stools normally through the rectum. Review of Systems General: Reports: 10 or more systems reviewed and unremarkable except in HPI and below Const: Denies: fever(s), chills or body aches Eyes: Denies: change in vision, blurry vision or photophobia ENMT: Reports: hoarseness; Denies: throat pain, enlarged tonsils, odynophagia or nasal congestion Card: Denies: chest pain, palpitations, irregular heart rhythm, edema, swelling of feet/ankles, lightheadedness, pre-syncope, dyspnea on exertion or orthopnea Resp: Denies: dyspnea, productive cough, non-productive cough, wheezing, stridor, pain on inspiration, change in phlegm color, hemoptysis or chest congestion GI: Denies: abdominal pain, nausea, vomiting, hematemesis, coffee ground emesis, dysphagia, heartburn, diarrhea, constipation, GI cramping, change in stool character, hematochezia or melena : Denies: flank pain, difficulty voiding, dysuria, urinary frequency, urinary urgency, urinary hesitancy or hematuria Musc: Denies: neck pain, back pain, extremity pain, joint swelling, joint warmth or deformity Neuro: Denies: headache(s), numbness in extremities, weakness in extremities, sensory changes, difficulty walking, frequent falls, dizziness, vertigo, behavioral changes, Slurred speech present or seizure-like activity Psych: Denies: anxiety, depression, suicidal ideation or homicidal ideation Endo: Denies: polyuria, polydipsia, tired all the time, cold intolerance or hot flashes Teddy/Lymph: Denies: easy bruising or easy bleeding Medications/Allergies Home Medications Medication Instructions Recorded Confirmed Last Taken Type biotin 5 mg capsule 5 mg PO DAILY@0900 06/22/20 07/07/21 08/10/20 History calcium citrate 315 mg 4 tab PO DAILY@0900 tab 06/22/20 07/07/21 08/10/20 Hist ory calcium-vitamin D3 6.25 mcg (250 unit) tablet (Citracal + Vitamin D Maximum) cholecalciferol (vitamin D3) 250 250 mcg PO DAILY@0900 06/22/20 07/07/21 08/10/20 History mcg (10,000 unit) capsule ovaijyye-awwaest-lkvl-iron 18 1 tab PO DAILY@0900 tab 06/22/20 07/07/21 History mg-FA 400 mcg-vit K 25 mcg tablet (One-A-Day Women's Complete) potassium gluconate 600 mg (99 mg) 1,800 mg PO DAILY@0900 tab 06/22/20 07/07/21 08/10/20 History tablet turmeric 400 mg capsule 800 mg PO DAILY@0900 cap 06/22/20 07/07/21 08/10/20 History zinc 50 mg tablet 50 mg PO DAILY@0900 06/22/20 07/07/21 08/10/20 History B-complex with vitamin C (Super B 1 tab PO DAILY@0900 07/07/20 07/07/21 08/10/20 History Complex-Vitamin C) ferrous sulfate 325 mg (65 mg 325 mg PO DAILY@0900 07/07/20 07/07/21 08/10/20 History iron) tablet oregano oil 1,500 mg capsule 1,500 mg PO DAILY@0900 cap 07/07/20 07/07/21 08/10/20 History vitamin B complex (B 1 tab PO DAILY@0900 07/07/20 07/07/21 08/10/20 History Complex-Vitamin B12) vitamin E 200 unit capsule 200 unit PO DAILY@0900 07/07/20 07/07/21 08/10/20 History blood sugar diagnostic (FreeStyle #100 ea 07/10/20 07/07/21 Unknown Rx Test) blood-glucose meter (OneTouch #1 ea 07/10/20 07/07/21 Unknown Rx Verio Meter) lancets 33 gauge (BD Ultra Fine #100 ea 07/10/20 07/07/21 Unknown Rx Lancets) lancets 33 gauge (OneTouch Delica #360 ea 07/10/20 07/07/21 Unknown Rx Lancets) magnesium 1 tab PO DAILY@0900 08/11/20 07/07/21 08/10/20 History cefdinir 300 mg capsule 300 mg PO BID 09/09/20 07/07/21 Unknown History insulin glargine 100 unit/mL (3 See Rx Instructions .ROUTE 03/11/21 07/07/21 Unknown Rx mL) subcutaneous pen (Lantus .COMPLEX #15 ml Solostar U-100 Insulin) pen needle, diabetic 32 gauge x #360 ea 03/11/21 07/07/21 Unknown Rx (BD Polina 2nd Gen Pen Needle) insulin aspart U-100 100 unit/mL See Rx Instructions SUBCUT TID #10 03/16/21 07/07/21 Unknown Rx subcutaneous solution (Novolog ml U-100 Insulin aspart) insulin syringe-needle U-100 1 mL #100 ea 03/16/21 07/07/21 Unknown Rx 31 gauge x 5/16 (BD Insulin Syringe Ultra-Fine) blood-glucose meter,continuous #1 ea 03/26/21 07/07/21 Unknown Rx (Dexcom G6 Channel Cementer Outsole Machine) blood sugar diagnostic (OneTouch #360 ea 05/10/21 07/07/21 Unknown Rx Verio test strips) insulin aspart U-100 100 unit/mL See Rx Instructions SUBCUT TID #15 08/16/21 Unknown Rx (3 mL) subcutaneous pen (Novolog ml Flexpen U-100 Insulin aspart) blood-glucose sensor (Dexcom G6 #3 ea 09/23/21 Unknown Rx Sensor) blood-glucose transmitter (Dexcom #1 ea 09/23/21 Unknown Rx G6 Transmitter) Allergies Allergy/AdvReac Type Severity Reaction Status Date / Time latex Allergy rash, Verified 09/09/20 14:02 itchy eyes, respiratory symptoms levofloxacin [From Levaquin] Allergy hair loss, Verified 09/09/20 14:02 stomach upset vancomycin AdvReac red man Verified 09/09/20 14:02 syndrome PFSH Acute PFSH: Medical History (Updated 10/25/21 @ 06:41 by Ivette Breen MD) Fusion of spine of thoracic region Osteomyelitis Per patient history it appears this was related to placement of external fixators and multiple trauma from falls Pressure sore Scoliosis Tethering of spinal cord Surgical History (Updated 10/25/21 @ 06:38 by Ivette Breen MD) History of construction of external stoma of urinary system 01/2020. Due to urethral erosions from pressure injuries History of eye surgery Family History Family/Other Cancer maternal uncle, lung cancer Diabetes maternal uncle Grandfather Cancer skin cancer, paternal Family/Other Cancer maternal uncle, brain cancer Grandmother Diabetes maternal Denies family history of Ovarian cyst CAD (coronary artery disease) Clotting disorder Hyperlipidemia Chronic kidney disease (CKD) Anesthesia complication Bleeding disorder Hypertension Stroke Social History Smoking and tobacco status: never smoked Second hand smoke exposure: Yes Alcohol intake: never Female Reproductive History: Date of last menstrual period: 08/06/20 Physical Exam Narrative: GEN: Awake, alert and oriented, severely dehydrated, dry chapped lips. Tachypneic and tachycardic. 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 Right side AKA, left side 2 out of 5, however this is chronic. Data : 10/25/21 00:20 10/25/21 04:50 Other data: Imaging from other hospital: Chest x-ray showed clear lungs. Mild gaseous distention of the bowel, less likely air under the left hemidiaphragm. Follow-up CT of the abdomen and pelvis shows fluid distended stomach. No evidence of free intraperitoneal air. There is constipation but no evidence of bowel obstruction. Mild right hydronephrosis. Urinary bladder irregularly thickened and distended. Peritoneal catheter in place. Amputation changes, chronic changes within the hips and right sacral decubitus ulcer and marked soft tissue thickening along the perirectal region progressed from previous exam. A&P Assessment and plan (1) Diabetic ketoacidosis: Patient with known type 1 diabetes presenting today with diabetic ketoacidosis as evidenced by elevated blood sugar, HAGMA and positive urine ketones. Start insulin infusion per DKA protocol. Target blood sugar to be between 90-1 20. Currently blood sugar is at 237, will use D5 normal saline as a fluid choice. N.p.o. until anion gap closes. CMP every 4 hours. Findings of elevated lactate, leukocytosis, tachypnea, tachycardia more likely related to DKA however will provide empiric antibiotic coverage over the next 24 to 48 hours while undergoing sepsis evaluation. Status: Acute (2) Gastroparesis: fluid distended stomach. No evidence of free intraperitoneal air. There is constipation but no evidence of bowel obstruction. Suspect that findings represent diabetic gastroparesis. Patient does not have any abdominal symptoms at this present time. Status: Acute (3) Oropharyngeal candidiasis: Currently also has significant oropharyngeal candidiasis. Nystatin swish and swallow 500,000 unit 4 times daily. Patient has recently been using fluconazole which she says does not usually work for her candidiasis. At this time however intertrigo does appear to have cleared up. Status: Acute Attestations Medical Necessity Statement*: Anticipate greater than 2 midnight admission for management of diabetic ketoacidosis, severe metabolic acidosis, needs insulin infusion, IV hydration, close ICU monitoring. Critical Care Time: The high probability of a clinically significant, sudden or life threatening deterioration of the patient's [endocrine, respiratory, cardiac system(s) required my full and direct attention, intervention and personal management. The critical care time is as shown. This time is in addition to time spent performing any reported procedures but includes the following: [x] Data and vital sign review and interpretation [x] Patient assessment, examination and intervention [x] Documentation [x] Medication orders and management Critical Care Time (min): 60 Coding Level of Care Code Acute Websphere Commerce Architect for [facility] Diagnoses Diabetic ketoacidosis E11.10 Gastroparesis K31.84 Oropharyngeal candidiasis B37.0
[2021-10-25] VITALS (74 sets, daily range): BP systolic 88–140; BP diastolic 54–98; PULSE 99–158; RESP 14–35; TEMP 36.7–36.8; O2SAT 95–100; BMI 26.0
[2021-10-25] MEDS: sodium chloride 0.9% 1,000 ML 125 ML IV (00:08)
[2021-10-25 00:09] LABS: ABG PH Result 7.02 (7.35-7.45); Arterial Blood Gas Hematocrit 43.1 % (37-47); Base Excess ABG -26.3 mmol/L (-2.0-2.0); Blood Gas Allen Test Pos; Blood Gas Sample Site Radial, right; Blood Gas Sample Type Arterial; HCO3 ABG 2.6 mmol/L (22-26); Oxygen Device ROOM AIR
[2021-10-25 00:10] LABS: ABG PCO2 9.9 mmHg (35-45)
[2021-10-25 00:15] LABS: Glucose Point of Care 239 mg/dL (70-110)
[2021-10-25] MEDS: enoxaparin 40 mg/0.4 mL Syringe SUBCUT ×2 (00:38→22:05)
[2021-10-25 00:43] LABS: Basophils # 0.1 10^3/uL (0.0-0.1); Basophils % 0.7 %; Hematocrit 41.9 % (37.0-47.0); Hemoglobin 13.7 g/dL (11.5-15.3); Lymphocytes # 1.7 10^3/uL (0.8-4.8); Mean Corpuscular HGB Conc 32.7 g/dL (30.0-36.0); Mean Corpuscular Hemoglobin 30.2 pg (28.0-34.0); Mean Corpuscular Volume 92.3 fl (81-99); Mean Platelet Volume 11.8 fL (7.4-10.4); Monocytes # 1.5 10^3/uL (0.2-0.9); Monocytes % 8.8 %; Nucleated Red Blood Cells % 0 %; Platelet Count 290 10^3/cmm (130-400); Red Blood Count 4.54 10^6/uL (4.1-5.3); Red Cell Distribution Width 14.6 % (12.1-15.1); White Blood Count 17.1 10^3/uL (4.0-10.0)
[2021-10-25] MEDS: insulin regular-human 250 UNIT in sodium chloride 0.9% 250 ML 5.4 UNIT IV (00:47)
[2021-10-25] MEDS: dextrose 5%-sod chloride 0.9% 1,000 ML 125 ML IV (00:57)
[2021-10-25 01:01] LABS: Lactic Sepsis W/Reflex 2.6 mmol/L (0.5-2.2)
[2021-10-25 01:02] LABS: Acetaminophen < 5.0 ug/mL (10-30); Alanine Aminotransferase 17 U/L (0-33); Alkaline Phosphatase 127 IU/L (35-105); Anion Gap 34.9 (5-19); Aspartate Amino Transferase 17 U/L (0-32); Blood Urea Nitrogen 11 mg/dL (6-20); Calcium 7.7 mg/dL (8.5-10.5); Chloride 108 mmol/L (98-107); Globulin 3.7 g/dL (1.3-4.6); Glomerular Filtration Rate 110.2 mL/min (90-130); Glucose 249 mg/dL (65-115); Magnesium 1.7 mg/dL (1.7-2.3); Osmolality Calculated 304 mOsm/kg (285-295); Potassium 3.9 mmol/L (3.5-5.1); Salicylate < 0.3 mg/dL (3-10); Sodium 143 mmol/L (136-145); Total Bilirubin 0.2 mg/dL (0.15-1.2); Total Protein 7.7 g/dL (6.6-8.7)
[2021-10-25 01:04] LABS: Carbon Dioxide 4 mmol/L (22-29)
[2021-10-25 01:09] LABS: Glucose Point of Care 236 mg/dL (70-110)
[2021-10-25 02:05] LABS: Amphetamines Screen Urine Negative (Negative); Barbiturates Screen Urine Negative (Negative); Benzodiazepines Screen Urine Negative (Negative); Cocaine Screen Urine Negative (Negative); Opiate Screen Urine Negative (Negative); PCP Screen Urine Negative (Negative); THC Screen Urine Negative (Negative)
[2021-10-25 02:14] LABS: Add Urine Microscopic? YES; Bilirubin Urine Neg (Negative); Blood Urine 2+ (Negative); Glucose Urine UA 2+ (Normal); Ketones Urine 3+ (Negative); Leukocyte Esterase Urine Negative (Negative); Nitrate Urine Negative (Negative); Protein Urine 1+ (Negative); Specific Gravity, Urine 1.015 (1.005-1.030); Urine Appearance Clear (CLEAR); Urine Color Yellow (Yellow); Urobilinogen Urine Norm (Negative); pH Urine 5 (5-7)
[2021-10-25 02:15] LABS: Amorphous Sediment Urine TRACE /hpf; Bacteria Urine TRACE /hpf; Mucus Urine TRACE /hpf; RBC Urine 0-4 /hpf (0-2); Squamous Epithelial Cell Urine 0-4 /hpf (0-5)
[2021-10-25 02:16] LABS: Add Urine Culture? No; Coarse Granular Casts Urine RARE /lpf
[2021-10-25 02:27] LABS: Reflex Lactate Order REFLEX LACTIC ORDERD
[2021-10-25] MEDS: lidocaine 1% 5 ML in potassium chloride premix 100 ML 25 ML IV (02:56)
[2021-10-25 03:22] LABS: Glucose Point of Care 192 mg/dL (70-110)
[2021-10-25 04:31] LABS: Glucose Point of Care 168 mg/dL (70-110)
[2021-10-25 05:38] LABS: Glucose Point of Care 132 mg/dL (70-110)
[2021-10-25 06:07] LABS: Lactic Acid level (Lactate) 1.7 mmol/L (0.5-2.2)
[2021-10-25 06:15] LABS: Anion Gap 20.6 (5-19); Blood Urea Nitrogen 12 mg/dL (6-20); Calcium 8.2 mg/dL (8.5-10.5); Carbon Dioxide 10 mmol/L (22-29); Chloride 119 mmol/L (98-107); Glomerular Filtration Rate 175.9 mL/min (90-130); Glucose 177 mg/dL (65-115); Osmolality Calculated 306 mOsm/kg (285-295); Potassium 3.6 mmol/L (3.5-5.1); Sodium 146 mmol/L (136-145)
[2021-10-25 06:50] LABS: Glucose Point of Care 120 mg/dL (70-110)
[2021-10-25] MEDS: dextrose 5%-ns 0.45% + KCl 40 1,000 ML 100 MEQ IV (07:39)
[2021-10-25 08:00] LABS: Glucose Point of Care 125 mg/dL (70-110)
--- NOTE | 2021-10-25 08:11 | ECG_ITS ---
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 Measurements Intervals [place] Rate: 119 P: 40 [place]: 116 QRS: 82 QRSD: 84 T: 64 QT: 305 QTc: 430 Interpretive Statements SINUS TACHYCARDIA WITH SHORT [place] INTERVAL MINIMAL ST DEPRESSION [0.025+ mV ST DEPRESSION] ABNORMAL RHYTHM ECG No previous ECG available for comparison Electronically Signed On 10-26-2021 16:42:37 CDT by Cipriano Lim M.D. [id number]
--- NOTE | 2021-10-25 08:18 | PC.NURSE ---
Refusing Antibiotics Pt is refusing antibiotics due to her wanting to use her oregano supplement. She stated that unless the antibiotics are proven to treat her current problem she will not take them. She also stated her problem is yeast overgrowth not bacteria.
[2021-10-25] MEDS: potassium chloride ER 20 mEq Tablet 40 MEQ PO ×2 (08:27→10:59)
[2021-10-25] MEDS: nystatin 100,000 unit/mL UDC 5 mL 500000 UNIT PO ×4 (08:28→22:05)
[2021-10-25 09:12] LABS: Anion Gap 16.8 (5-19); Blood Urea Nitrogen 12 mg/dL (6-20); Calcium 7.9 mg/dL (8.5-10.5); Carbon Dioxide 12 mmol/L (22-29); Chloride 117 mmol/L (98-107); Chol HDL Ratio 2.72 mg/dL (0.0-4.40); Cholesterol 117 mg/dL (0-200); Glomerular Filtration Rate 175.9 mL/min (90-130); Glucose 137 mg/dL (65-115); HDL Cholesterol 43 mg/dL (60-100); LDL Cholesterol Calculated 49 mg/dL (50-129); LDL HDL Ratio 1.14 RATIO (0.00-3.22); Magnesium 1.8 mg/dL (1.7-2.3); Osmolality Calculated 296 mOsm/kg (285-295); Potassium 3.8 mmol/L (3.5-5.1); Sodium 142 mmol/L (136-145); Triglycerides 126 mg/dL (0-150)
[2021-10-25 09:15] LABS: Troponin(5th) Baseline 8 ng/L (0-10)
[2021-10-25 09:18] LABS: Glucose Point of Care 210 mg/dL (70-110)
[2021-10-25 09:23] LABS: NT Pro B Type Natriuretic Pept 909 pg/mL (0-125); Procalcitonin 0.32 ng/mL (0-0.5)
--- NOTE | 2021-10-25 09:52 | PC.CHAP ---
Pastoral Care Encounter/Spiritual Assessment Type of Contact [] Declined atm technician visit [] Patient/Family/Request visit [] Outpatient visit [] Follow-up visit [] Physician referral [] Code/Alert [x] Routine visit [] Staff referral [] Actively dying [] Patient sleeping [] Family support [] [] Out of room [] Palliative care [] [x] Receiving care in room [] Pre-surgical visit [] Trauma [] Long length of stay [x] ICU visit [] Other: Relational/Emotional Strength [] Patient feels connected with others/family/visitors/staff [] Distress [] Loneliness/isolation [] Abandonment Spirituality of Patient [] Person of Gabriela [] Attends Confucianist of their Gabriela [] Believes in Prayer [] Reads Bible or Scientologist materials [] There are Spiritual issues to be addressed Rn Integrity Interventions [x] Prayer [] Active listening [] Non-anxious presence [] Spiritual/emotional support [] Crisis/trauma care [] Spiritual counseling [] Bereavement support [] Provided bereavement packet [] Provided Bible/devotional materials [] Provided toy/stuffed animal, coloring book to patient or family member [] Provided Communion [] Anointing/[place] [] Salvation [x] Completed spiritual assessment [] Other: Impact on Illness or Injury [] Angry [] Fearful [] Anxious [] Often cries [] Exhaustion [] Unable to work [] Unable to attend confucianism [] Unable to walk/stand [] Unable to read [] Unable to drive [] Unable to eat/drink [] Unable to sleep [] Unable to be with family [] Patient intubated [] Other: Summary Time spent with patient
--- NOTE | 2021-10-25 10:48 | CTR_ITS ---
PROCEDURE INFORMATION: Exam: CT Chest Without Contrast; Diagnostic Exam date and time: 10/25/2021 11:47 AM Age: 41 years old Clinical indication: Abdominal pain; Generalized; Chest pressure; Prior surgery; Surgery date: 6+ months; Additional info: Rcurrent candidiasis TECHNIQUE: Imaging protocol: Diagnostic computed tomography of the chest without contrast. Total images: 131 Radiation optimization: All CT scans at this facility use at least one of these dose optimization techniques: automated exposure control; mA and/or kV adjustment per patient size (includes targeted exams where dose is matched to clinical indication); or iterative reconstruction. COMPARISON: CR (CHEST, ) 10/24/2021 11:30 PM RADIATION DOSE METRICS: Total DLP (mGy-cm): 966.71 FINDINGS: Tubes, catheters and devices: Ventriculoperitoneal shunt is present. Lungs: Mild dependent atelectasis. Pleural spaces: Unremarkable. No pneumothorax. No pleural effusion. Heart: No coronary arterial calcification is detected. Mediastinal space: Contrast is noted within the esophagus suggesting gastroesophageal reflux. Lymph nodes: Unremarkable. No enlarged lymph nodes. Vasculature: Unremarkable. No aortic aneurysm. Bones/joints: Spinal fusion hardware noted. Braddock right spinal scoliosis. Soft tissues: Unremarkable. PROCEDURE INFORMATION: Exam: CT Abdomen And Pelvis Without Contrast Exam date and time: 10/25/2021 11:47 AM Age: 41 years old Clinical indication: Abdominal pain; Generalized; Chest pressure; Prior surgery; Surgery date: 6+ months; Additional info: Rcurrent candidiasis TECHNIQUE: Imaging protocol: Computed tomography of the abdomen and pelvis without contrast. Radiation optimization: All CT scans at this facility use at least one of these dose optimization techniques: automated exposure control; mA and/or kV adjustment per patient size (includes targeted exams where dose is matched to clinical indication); or iterative reconstruction. COMPARISON: CT abdomen pelvis wo con [id number] 08/11/2020 8:57 PM RADIATION DOSE METRICS: Total DLP (mGy-cm): 966.71 FINDINGS: Tubes, catheters and devices: Ventriculoperitoneal shunt is present. Liver: Normal. No mass. Gallbladder and bile ducts: Normal. No calcified stones. No ductal dilation. Pancreas: Normal. No ductal dilation. Spleen: Normal. No splenomegaly. Adrenal glands: Normal. No mass. Kidneys and ureters: Nonobstructive right sided kidney stone measures 4 mm. No ureteral nor bladder calculi detected. Stomach and bowel: Unremarkable. No obstruction. No mucosal thickening. Appendix: No evidence of appendicitis. Intraperitoneal space: Unremarkable. No free air. No significant fluid collection. Vasculature: Unremarkable. No abdominal aortic aneurysm. Lymph nodes: Unremarkable. No enlarged lymph nodes. Urinary bladder: Postsurgical changes adjacent to urinary bladder felt to represent bladder augmentation. 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 Reproductive: Unremarkable as visualized. Bones/joints: Spinal fusion hardware noted. Braddock right spinal scoliosis. Soft tissues: Soft tissue thickening extending from low rectum/anus area into perineum and medial right stump. Mild adjacent fatty stranding. Findings are felt to represent scar tissue. No focal fluid collection seen in this area. CT/[place] [id number] IMPRESSION: 1. No acute process identified. 2. Contrast is noted within the esophagus suggesting gastroesophageal reflux. IMPRESSION: 1. Nonobstructive right sided kidney stone measures 4 mm. No ureteral nor bladder calculi detected. 2. Postsurgical changes adjacent to urinary bladder felt to represent bladder augmentation. 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 3. Soft tissue thickening extending from low rectum/anus area into perineum and medial right stump. Mild adjacent fatty stranding. Findings are felt to represent scar tissue. No focal fluid collection seen in this area. This finding is stable when compared to the prior exam. 4. No acute process identified. 5. In
[2021-10-25] MEDS: magnesium lactate 84 mg Tablet PO (10:59)
[2021-10-25] MEDS: phosphorus 250 mg Tablet 500 MG PO (10:59)
[2021-10-25] MEDS: insulin glargine 100 units/1 mL 10 UNIT SUBCUT ×2 (11:00→22:05)
[2021-10-25] MEDS: sodium chloride 0.9% 1,000 ML 75 ML IV (11:13)
[2021-10-25] MEDS: fluconazole premix 400 MG/200 ML PIGGYBACK 200 MG IV (11:16)
--- NOTE | 2021-10-25 11:18 | PM.PN ---
Subjective Subjective: Patient was seen this morning, she tells me that she gets invasive candidal infections, in her mouth, all over her skin, she thinks that this is the reason why she continues to have diabetic ketoacidosis episodes, she tells me that she had a right extremity bone infection resulting in right lower extremity amputation, no evidence of stump breakdown, no back pain, she lives with her mom, I spoke to patient's mom, patient has had recurrent oral candidiasis infections, complaints of dysphagia Vitals/I&O/Wt Last Vital Signs Temp 98.2 F 10/24/21 23:12 Pulse 119 H 10/25/21 10:00 Resp 17 10/25/21 10:00 BP 90/54 10/25/21 10:00 Pulse Ox 98 10/25/21 10:00 10/24/21 10/25/21 10/25/21 22:59 06:59 14:59 Intake Total 166.506 / 166.506 6.117 / 6.117 Output Total 1000 / 1000 150 / 150 Balance -833.494 / -833.494 -143.883 / -143.883 Weight last 48 hrs Weight 48.988 kg Weight 48.988 kg Physical Exam Const: COMMON NORMALS: no acute distress and patient oriented x3 Resp: COMMON NORMALS: normal respiratory effort, No retractions, No use of accessory muscles and clear to auscultation bilaterally AUSCULTATION: clear to auscultation bilaterally Cardio: COMMON NORMALS: regular rate, regular rhythm, S1 normal heart sound present and S2 normal heart sound present RATE: regular rate RHYTHM: regular rhythm HEART SOUNDS: S1 normal heart sound present and S2 normal heart sound present GI: COMMON NORMALS: Normal to inspection, nondistended, normoactive bowel sounds present, Soft to palpation and non-tender PALPATION: Yes Soft to palpation Extremity: COMMON NORMALS: no pedal edema Neuro: COMMON NORMALS: patient oriented x3 Psych: COMMON NORMALS: mental status grossly normal Skin: NARRATIVE SKIN EXAM: Oral pharyngeal candidiasis Multiple areas of skin erythema evidence of skin candidiasis Right lower extremity amputation, stump site clean and dry Data : 10/25/21 00:20 10/25/21 08:44 Micro: Microbiology 10/25/21 00:20 Blood Culture - Preliminary Blood SPECIMEN COLLECTED A&P Assessment and plan (1) Diabetic ketoacidosis: Patient with known type 1 diabetes presenting today with diabetic ketoacidosis as evidenced by elevated blood sugar, HAGMA and positive urine ketones. Gap is closed, blood sugars reasonable, stop insulin drip Lantus 10 units twice daily, moderate dose sliding scale Target blood sugar to be between 90-1 20. Diabetic diet Findings of elevated lactate, leukocytosis, tachypnea, tachycardia more likely related to DKA however will provide empiric antibiotic coverage over the next 24 to 48 hours while undergoing sepsis evaluation. Status: Acute (2) Gastroparesis: fluid distended stomach. No evidence of free intraperitoneal air. There is constipation but no evidence of bowel obstruction. Suspect that findings represent diabetic gastroparesis. Status: Acute (3) Oropharyngeal candidiasis: Currently also has significant oropharyngeal candidiasis. Start fluconazole 's [place] CT scan due to recurrent candidal infections At this time however intertrigo does appear to have cleared up. Status: Acute Plan Low blood pressures, likely secondary dehydration, patient declines to take Zosyn for empiric antibiotic coverage, will fluid bolus no evidence of UTI, no evidence of pneumonia plan CT, blood cultures urine cultures Attestations Medical Necessity Statement*: Patient requires hospitalization for diabetic ketoacidosis, oropharyngeal candidiasis, recurrent candidal infections, hypotension Coding Level of Care Code Acute Draw Press Operator for [facility] Diagnoses Diabetic ketoacidosis E11.10 Gastroparesis K31.84 Oropharyngeal candidiasis B37.0
[2021-10-25 11:45] LABS: Troponin 5 2HR 6.89 ng/L (0-10)
[2021-10-25 11:48] LABS: Troponin 5 2HR Delta -1.11 ABS# (0-10)
[2021-10-25 11:49] LABS: Estmated Average Glucose 154
[2021-10-25] MEDS: lactated ringers 1,000 ML 999 ML IV (11:58)
[2021-10-25 12:10] LABS: Glucose Point of Care 259 mg/dL (70-110)
[2021-10-25] MEDS: insulin lispro 100 unit/1 mL SUBCUT ×2 (12:15→22:05)
--- NOTE | 2021-10-25 13:10 | PC.NURSE ---
Refusing Antibiotic pt refused Rocephin. physician notified.
--- NOTE | 2021-10-25 14:11 | ECG_ITS ---
[facility] Test Date: 2021-10-25 Pat Name: Mary Anne Israel Department: Room: 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 Measurements Intervals [place] Rate: 105 P: 45 DE: 142 QRS: 71 QRSD: 87 T: 60 QT: 325 QTc: 431 Interpretive Statements SINUS TACHYCARDIA MINIMAL ST DEPRESSION [0.025+ mV ST DEPRESSION] ABNORMAL RHYTHM ECG Compared to ECG 10/25/2021 09:18:21 Short DE interval no longer present ST (T wave) deviation still present Electronically Signed On 10-26-2021 16:54:18 CDT by Cipriano Lim M.D. [id number]
[2021-10-25 17:02] LABS: Glucose Point of Care 133 mg/dL (70-110)
[2021-10-25] MEDS: nystatin powder 15 gm Btl 1 APPLIC TOPICAL (17:11)
--- NOTE | 2021-10-25 18:22 | PC.NURSE ---
This nurse in assuming care of this patient, arrived via bed from ICU. No c/o pain or discomfort, IJ in place and patent with clean/dry dressing intact. Straight cath at bedside soaking in alcohol. BP remains soft, with remaining VSS, no needs at this time, room clean and clutter free with call light in reach.
--- NOTE | 2021-10-25 18:23 | PC.NURSE ---
Transfer Report called to July RN. Transferred pt to [facility] via bed. Belongings at bedside.
[2021-10-25 20:48] LABS: Glucose Point of Care 143 mg/dL (70-110)
[2021-10-26] VITALS (10 sets, daily range): BP systolic 90–120; BP diastolic 62–70; PULSE 80–100; RESP 16–17; TEMP 36.5–36.7; O2SAT 94–98
[2021-10-26] MEDS: sodium chloride 0.9% 1,000 ML 75 ML IV (01:11)
[2021-10-26 06:43] LABS: Glucose Point of Care 47 mg/dL (70-110)
[2021-10-26 07:43] LABS: Glucose Point of Care 152 mg/dL (70-110)
--- NOTE | 2021-10-26 07:44 | PC.NURSE ---
Patient is A&O x4. Checked blood sugar at 07:40. Blood sugar is 152.
[2021-10-26] MEDS: cholecalciferol (vitamin D3) 1,000 unit Tablet 1000 UNIT PO (08:44)
[2021-10-26] MEDS: zinc gluconate 50 mg Tablet PO (08:44)
[2021-10-26] MEDS: ferrous sulfate EC 325 mg Tablet PO (08:45)
[2021-10-26] MEDS: nystatin powder 15 gm Btl 1 APPLIC TOPICAL (08:46)
[2021-10-26] MEDS: nystatin 100,000 unit/mL UDC 5 mL 500000 UNIT PO ×3 (08:47→16:56)
[2021-10-26] MEDS: insulin glargine 100 units/1 mL 10 UNIT SUBCUT (09:01)
[2021-10-26] MEDS: fluconazole premix 200 MG/100 ML PREMIX 100 MG IV (09:55)
[2021-10-26 10:31] LABS: Alanine Aminotransferase 13 U/L (0-33); Albumin Level 3.1 g/dL (3.5-5.2); Alkaline Phosphatase 78 IU/L (35-105); Anion Gap 19.7 (5-19); Aspartate Amino Transferase 15 U/L (0-32); Blood Urea Nitrogen 6 mg/dL (6-20); C Reactive Protein 54.5 mg/L (0.0-4.9); Calcium 7.9 mg/dL (8.5-10.5); Carbon Dioxide 13 mmol/L (22-29); Chloride 112 mmol/L (98-107); Globulin 2.4 g/dL (1.3-4.6); Glomerular Filtration Rate 391.4 mL/min (90-130); Glucose 202 mg/dL (65-115); Magnesium 1.7 mg/dL (1.7-2.3); Osmolality Calculated 295 mOsm/kg (285-295); Potassium 3.7 mmol/L (3.5-5.1); Sodium 141 mmol/L (136-145); Total Bilirubin 0.2 mg/dL (0.15-1.2); Total Protein 5.5 g/dL (6.6-8.7)
--- NOTE | 2021-10-26 10:36 | PM.DCS ---
Discharge Providers Date of Admission: 10/24/21 23:13 Date of Discharge: October 26, 2021 Attending Provider at Admission: Ivette Breen MD Attending Provider at Discharge: Geoffrey Willis MD Diagnoses at Discharge Discharge Diagnosis (1) Diabetic ketoacidosis: Status: Acute (2) Gastroparesis: Status: Acute (3) Oropharyngeal candidiasis: Status: Acute Reason for Visit Reason for Visit: DKA Hospital Course Hospital Course Mary Anne Israel is a 41 year old female with a past medical history of type 1 diabetes mellitus, transferred from [facility] today due to diabetic ketoacidosis.? Presented to the outside hospital with chief complaints of generalized weakness chest and abdominal pain over the past 2 to 3 days Patient was admitted to [facility] for diabetic ketoacidosis, managed with insulin drip, DKA protocol, fluid therapy, electrolyte replacement clinically over overall improved, moved out of ICU, hemoglobin A1c 7, monitor external General medical floors. She will be discharged on her home insulin, with close follow-up with her primary care as outpatient Patient has recurrent candidiasis, complaints of dysphagia associate with candidiasis, discharged on extended course of Diflucan for esophageal candidiasis. I will have her also follow-up with general surgery as if she continues to have candidiasis she might require a diagnostic EGD. Physical Exam Const: COMMON NORMALS: no acute distress and patient oriented x3 Resp: COMMON NORMALS: normal respiratory effort, No retractions, No use of accessory muscles and clear to auscultation bilaterally AUSCULTATION: clear to auscultation bilaterally Cardio: COMMON NORMALS: regular rate, regular rhythm, S1 normal heart sound present and S2 normal heart sound present RATE: regular rate RHYTHM: regular rhythm HEART SOUNDS: S1 normal heart sound present and S2 normal heart sound present GI: COMMON NORMALS: Normal to inspection, nondistended, normoactive bowel sounds present, Soft to palpation and non-tender PALPATION: Yes Soft to palpation Neuro: COMMON NORMALS: patient oriented x3 Psych: COMMON NORMALS: mental status grossly normal Discharge Data Studies Completed and Pending Completed Studies During Hospitalization Category Date Time Status CT chest abdomen pelvis [[place] [id number] Cat Scan 10/25/21 10:48 Completed ] Stat XR chest 1V portable [id number] Stat Exams 10/24/21 23:12 Completed Pending at discharge Category Date Time Status Blood Culture Stat Lab 10/24/21 23:12 Results Blood Culture Stat Lab 10/25/21 10:50 Results C Reactive Protein AM LABS Lab 10/27/21 04:00 Ordered C Reactive Protein AM LABS Lab 10/28/21 04:00 Ordered Complete Blood Count w/Auto AM LABS Lab 10/26/21 09:45 Results Complete Blood Count w/Auto AM LABS Lab 10/27/21 04:00 Ordered Complete Blood Count w/Auto AM LABS Lab 10/28/21 04:00 Ordered Comprehensive Metabolic Panel AM LABS Lab 10/27/21 04:00 Ordered Comprehensive Metabolic Panel AM LABS Lab 10/28/21 04:00 Ordered Erythrocyte Sedimentation Rate Routine Lab 10/25/21 10:50 Received Fungal Culture not HR/SK/BL Routine Lab 10/25/21 09:33 Received Magnesium AM LABS Lab 10/27/21 04:00 Ordered Magnesium AM LABS Lab 10/28/21 04:00 Ordered Miscellaneous Test Timed Lab 10/26/21 10:08 Received Phosphorus AM LABS Lab 10/27/21 04:00 Ordered Phosphorus AM LABS Lab 10/28/21 04:00 Ordered Sputum Culture and Gram Stain Stat Lab 10/25/21 10:35 Uncollected Urine Culture Stat Lab 10/25/21 08:35 Results Radiology Impressions Chest X-Ray 10/24/21 23:12 IMPRESSION: No obvious acute consolidation. Suboptimal lung base assessment. Followup including lateral view may be obtained if clinically indicated. Chest/Abdomen/Pelvis CT 10/25/21 10:48 IMPRESSION: 1. No acute process identified. 2. Contrast is noted within the esophagus suggesting gastroesophageal reflux. IMPRESSION: 1. Nonobstructive right sided kidney stone measures 4 mm. No ureteral nor bladder calculi detected. 2. Postsurgical changes adjacent to urinary bladder felt to represent bladder augmentation. 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 3. Soft tissue thickening extending from low rectum/anus area into perineum and medial right stump. Mild adjacent fatty stranding. Findings are felt to represent scar tissue. No focal fluid collection seen in this area. This finding is stable when compared to the prior exam. 4. No acute process identified. 5. In Laboratory Results WBC 17.1 10^3/uL (4.0-10.0) H 10/25/21 00:20 RBC 4.54 10^6/uL (4.1-5.3) 10/25/21 00:20 Hgb 13.7 g/dL (11.5-15.3) 10/25/21 00:20 Hct 41.9 % (37.0-47.0) 10/25/21 00:20 MCV 92.3 fl (81-99) 10/25/21 00:20 MCH 30.2 pg (28.0-34.0) 10/25/21 00:20 MCHC 32.7 g/dL (30.0-36.0) 10/25/21 00:20 RDW 14.6 % (12.1-15.1) 10/25/21 00:20 Plt Count 290 10^3/cmm (130-400) 10/25/21 00:20 MPV 11.8 fL (7.4-10.4) H 10/25/21 00:20 Neut % (Auto) 79.0 % 10/25/21 00:20 Lymph % (Auto) 10.0 % 10/25/21 00:20 [place] % (Auto) 8.8 % 10/25/21 00:20 Eos % (Auto) 0.0 % 10/25/21 00:20 Baso % (Auto) 0.7 % 10/25/21 00:20 Neut # (Auto) 13.50 10^3/uL (1.8-7.7) H 10/25/21 00:20 Lymph # (Auto) 1.7 10^3/uL (0.8-4.8) 10/25/21 00:20 [place] # (Auto) 1.5 10^3/uL (0.2-0.9) H 10/25/21 00:20 Eos # (Auto) 0.0 10^3/uL (0.0-0.8) 10/25/21 00:20 Baso # (Auto) 0.1 10^3/uL (0.0-0.1) 10/25/21 00:20 Nucleated RBC % (auto) 0 % 10/25/21 00:20 Nucleated RBCs # 0.0 /100WBC 10/25/21 00:20 Specimen Type Arterial 10/24/21 23:12 Sample Site Radial, right 10/24/21 23:12 ABG pH 7.02 (7.35-7.45) L* 10/24/21 23:12 ABG pCO2 9.9 mmHg (35-45) L* 10/24/21 23:12 ABG pO2 128.0 mmHg (80.0-100.0) H 10/24/21 23:12 ABG HCO3 2.6 mmol/L (22-26) L 10/24/21 23:12 ABG Base Excess -26.3 mmol/L (-2.0-2.0) L 10/24/21 23:12 Trevor Test Pos 10/24/21 23:12 Hematocrit 43.1 % (37-47) 10/24/21 23:12 O2 Delivery Device Room air 10/24/21 23:12 Call Or Contact Centre Manager ID [email or web address] 10/24/21 23:12 Sodium 141 mmol/L (136-145) 10/26/21 09:45 Potassium 3.7 mmol/L (3.5-5.1) 10/26/21 09:45 Chloride 112 mmol/L (98-107) H 10/26/21 09:45 Carbon Dioxide 13 mmol/L (22-29) L 10/26/21 09:45 Anion Gap 19.7 (5-19) H 10/26/21 09:45 BUN 6 mg/dL (6-20) 10/26/21 09:45 Creatinine 0.2 mg/dL (0.5-0.9) L 10/26/21 09:45 GFR Calculation 391.4 mL/min (90-130) H 10/26/21 09:45 Glucose 202 mg/dL (65-115) H 10/26/21 09:45 POC Glucose 152 mg/dL (70-110) H 10/26/21 07:40 Estimat Average Glucose 154 10/25/21 04:50 Hemoglobin A1c 7.0 % (4.0-6.0) H 10/25/21 04:50 Calculated Osmolality 295 mOsm/kg (285-295) 10/26/21 09:45 Lactic Acid 2.6 mmol/L (0.5-2.2) H 10/25/21 00:20 Lactic Acid (Sepsis) 1.7 mmol/L (0.5-2.2) 10/25/21 04:50 Calcium 7.9 mg/dL (8.5-10.5) L 10/26/21 09:45 Phosphorus 2.0 mg/dL (2.5-4.5) L 10/26/21 09:45 Magnesium 1.7 mg/dL (1.7-2.3) 10/26/21 09:45 Total Bilirubin 0.2 mg/dL (0.15-1.2) 10/26/21 09:45 AST 15 U/L (0-32) 10/26/21 09:45 ALT 13 U/L (0-33) 10/26/21 09:45 Alkaline Phosphatase 78 IU/L (35-105) 10/26/21 09:45 Troponin T Baseline 8 ng/L (0-10) 10/25/21 08:44 Troponin T 120 Minute 6.89 ng/L (0-10) 10/25/21 10:53 Delta Troponin T -1.11 ABS# (0-10) L 10/25/21 10:53 C-Reactive Protein 54.5 mg/L (0.0-4.9) H 10/26/21 09:45 NT-Pro-B Natriuret Pep 909 pg/mL (0-125) H 10/25/21 08:44 Total Protein 5.5 g/dL (6.6-8.7) L 10/26/21 09:45 Albumin 3.1 g/dL (3.5-5.2) L 10/26/21 09:45 Globulin 2.4 g/dL (1.3-4.6) 10/26/21 09:45 Triglycerides 126 mg/dL (0-150) 10/25/21 08:44 Cholesterol 117 mg/dL (0-200) 10/25/21 08:44 LDL Cholesterol, Calc 49 mg/dL (50-129) L 10/25/21 08:44 HDL Cholesterol 43 mg/dL (60-100) L 10/25/21 08:44 LDL/HDL Ratio 1.14 RATIO (0.00-3.22) 10/25/21 08:44 Cholesterol/HDL Ratio 2.72 mg/dL (0.0-4.40) 10/25/21 08:44 Procalcitonin 0.32 ng/mL (0-0.5) 10/25/21 08:44 Urine Color Yellow (Yellow) 10/25/21 01:10 Urine Appearance Clear (CLEAR) 10/25/21 01:10 Urine pH 5 (5-7) 10/25/21 01:10 Ur Specific [place] 1.015 (1.005-1.030) 10/25/21 01:10 Urine Protein 1+ (Negative) H 10/25/21 01:10 Urine Glucose (UA) 2+ (Normal) H 10/25/21 01:10 Urine Ketones 3+ (Negative) H 10/25/21 01:10 Urine Blood 2+ (Negative) H 10/25/21 01:10 Urine Nitrate Negative (Negative) 10/25/21 01:10 Urine Bilirubin Neg (Negative) 10/25/21 01:10 Urine Urobilinogen Norm mg/dL (Negative) 10/25/21 01:10 Ur Leukocyte Esterase Negative (Negative) 10/25/21 01:10 Urine RBC 0-4 /hpf (0-2) H 10/25/21 01:10 Urine WBC 5-10 /hpf (0-5) H 10/25/21 01:10 Ur Squamous Epith Cells 0-4 /hpf (0-5) H 10/25/21 01:10 Amorphous Sediment Trace /hpf 10/25/21 01:10 Urine Bacteria Trace /hpf (NONE) 10/25/21 01:10 Coarse Granular Casts Rare /lpf 10/25/21 01:10 Urine Mucus Trace /hpf 10/25/21 01:10 Salicylates < 0.3 mg/dL (3-10) L 10/25/21 00:20 Urine Opiates Screen Negative ng/mL (Negative) 10/25/21 01:10 Acetaminophen < 5.0 ug/mL (10-30) L 10/25/21 00:20 Ur Barbiturates Screen Negative ng/mL (Negative) 10/25/21 01:10 Ur Phencyclidine Scrn Negative ng/mL (Negative) 10/25/21 01:10 Ur Amphetamines Screen Negative ng/mL (Negative) 10/25/21 01:10 U Benzodiazepines Scrn Negative ng/mL (Negative) 10/25/21 01:10 Urine Cocaine Screen Negative ng/mL (Negative) 10/25/21 01:10 U Marijuana (THC) Screen Negative ng/mL (Negative) 10/25/21 01:10 Vitals Last Vital Signs Temp 97.7 F 10/26/21 08:00 Pulse 100 10/26/21 08:00 Resp 16 10/26/21 08:00 BP 104/69 10/26/21 08:00 Pulse Ox 98 10/26/21 07:17 Discharge Plan Discharge Patient Disposition: Home Condition: Stable Prescriptions: New fluconazole [Diflucan] 200 mg tablet 200 mg PO DAILY 12 Days Qty: 12 0RF nystatin 100,000 unit/mL Suspension 500,000 unit PO QID 7 Days Qty: 140 0RF nystatin [Nystop] 100,000 unit/gram Powder 1 applic topical BID 7 Days Qty: 60 0RF Continued One-A-Day Women's Complete 18 mg-400 mcg- 25 mcg tablet 1 tab PO DAILY@0900 0RF calcium citrate-vitamin D3 [Citracal + D Maximum] 315 mg-6.25 mcg (250 unit) tablet 4 tab PO DAILY@0900 0RF turmeric 400 mg capsule 800 mg PO DAILY@0900 0RF cholecalciferol (vitamin D3) 250 mcg (10,000 unit) capsule 250 mcg PO DAILY@0900 0RF potassium gluconate 600 mg (99 mg) tablet 1,800 mg PO DAILY@0900 0RF zinc 50 mg tablet 50 mg PO DAILY@0900 0RF biotin 5 mg capsule 5 mg PO DAILY@0900 0RF oregano oil 1,500 mg capsule 1,500 mg PO DAILY@0900 0RF ferrous sulfate 325 mg (65 mg iron) tablet 325 mg PO DAILY@0900 0RF vitamin B complex [B Complex-Vitamin B12] Tablet 1 tab PO DAILY@0900 0RF vitamin E 200 unit capsule 200 unit PO DAILY@0900 0RF (DME) FreeStyle Test Strip See Rx Instructions .ROUTE .MEDSUPPLY Qty: 100 0RF Rx Instructions: checks blood sugar 5 times a day (DME) lancets [BD Ultra Fine Lancets] [facility] See Rx Instructions .ROUTE .MEDSUPPLY Qty: 100 0RF Rx Instructions: test blood sugar 5 times a day (DME) blood-glucose meter [OneTouch Verio Meter] Mis See Rx Instructions .ROUTE .MEDSUPPLY Qty: 1 0RF Rx Instructions: test blood sugar (DME) pen needle, diabetic [BD Polina 2nd Gen Pen Needle] 32 gauge x 5/32 needle See Rx Instructions .ROUTE .MEDSUPPLY Qty: 360 3RF Rx Instructions: As directed Lantus Solostar U-100 Insulin 100 unit/mL (3 mL) insulin pen See Rx Instructions .ROUTE .COMPLEX Qty: 15 3RF Rx Instructions: 10 unit subcutaneously AT 0900 AND 5 UNIT SUBQ AT 1900 (DME) insulin syringe-needle U-100 [BD Insulin Syringe Ultra-Fine] 1 mL 31 gauge x 5/16 syringe See Rx Instructions .Route Qty: 100 0RF Rx Instructions: As directed (DME) Dexcom G6 Support Assistant Misc See Rx Instructions .Route Qty: 1 0RF Rx Instructions: blood sugar reading (DME) OneTouch Verio test strips Strip See Rx Instructions .ROUTE .MEDSUPPLY Qty: 360 3RF Rx Instructions: test blood sugar 4 times a day insulin aspart U-100 [Novolog Flexpen U-100 Insulin] 100 unit/mL (3 mL) insulin pen See Rx Instructions SUBCUT TID Qty: 15 3RF Rx Instructions: SUBCUT three times daily;as per sliding scale max dose 40 per day (DME) Dexcom G6 Sensor Device See Rx Instructions .Route Qty: 3 5RF Rx Instructions: check blood sugars (DME) Dexcom G6 Transmitter Device See Rx Instructions .Route Qty: 1 5RF Rx Instructions: As directed magnesium 30 mg Tablet 30 mg PO DAILY Qty: 0 0RF Vitamin B Complex With C Capsule 1 cap PO DAILY 0RF Discharge Orders: Discharge Order (Routine); Ordered 10/26/21 Ordered By: Geoffrey Willis Discharge Diet: Diabetic Discharge Activity: Resume usual activity Patient Instructions: Opioid Safety Discharge Attestations Time Spent in Discharge Care*: less than 30 min Quality Metrics Clinical Quality Measures [ No reported AMI, CVA or VTE this stay] Coding Level of Care Code Acute Chg FW DC note Diagnoses Diabetic ketoacidosis E11.10 Gastroparesis K31.84 Oropharyngeal candidiasis B37.0
[2021-10-26] MEDS: phosphorus 250 mg Tablet 500 MG PO (11:25)
[2021-10-26] MEDS: potassium chloride ER 20 mEq Tablet 40 MEQ PO (11:26)
[2021-10-26] MEDS: magnesium sulfate premix 4 GM/100 ML PREMIX IV (11:30)
[2021-10-26 11:41] LABS: Glucose Point of Care 234 mg/dL (70-110)
[2021-10-26] MEDS: insulin lispro 100 unit/1 mL SUBCUT (11:55)
[2021-10-26 12:44] LABS: Basophils % 0.9 %; Eosinophils % 0.6 %; Hematocrit 28.9 % (37.0-47.0); Lymphocytes # 1.2 10^3/uL (0.8-4.8); Lymphocytes % 35.5 %; Mean Corpuscular HGB Conc 34.6 g/dL (30.0-36.0); Mean Corpuscular Hemoglobin 30.4 pg (28.0-34.0); Mean Corpuscular Volume 87.8 fl (81-99); Mean Platelet Volume 12.4 fL (7.4-10.4); Monocytes # 0.3 10^3/uL (0.2-0.9); Neutrophils # 1.74 10^3/uL (1.8-7.7); Neutrophils % 53.7 %; Nucleated Red Blood Cells % 0 %; Platelet Count 153 10^3/cmm (130-400); Red Blood Count 3.29 10^6/uL (4.1-5.3); Red Cell Distribution Width 15.1 % (12.1-15.1); White Blood Count 3.2 10^3/uL (4.0-10.0)
[2021-10-26 16:21] LABS: Glucose Point of Care 212 mg/dL (70-110)
[2021-10-26 17:17] LABS: Erythrocyte Sedimentation Rate 11 mm/hr (0-15)
[2021-10-26 19:04] LABS: Erythrocyte Sedimentation Rate 11 mm/hr (0-15)
== END 2021-10-26 17:22 | disposition home or self-care (01) | DRG 638 ==
LOC: ICU 10-25 08:02 → MEDSURG 10-25 17:53
PROVIDERS: Admitting Provider Student in an Organized Health Care Education/Training Program; Visit Provider Family Medicine
DX: E10.10 Type 1 diabetes mellitus with ketoacidosis without coma (principal); B37.0 Candidal stomatitis; E10.43 Type 1 diabetes mellitus with diabetic autonomic (poly)neuropathy; K31.84 Gastroparesis; Q05.9 Spina bifida, unspecified; Z99.3 Dependence on wheelchair; Z89.611 Acquired absence of right leg above knee; Z93.6 Other artificial openings of urinary tract status; Z98.1 Arthrodesis status; I95.9 Hypotension, unspecified; E86.0 Dehydration
CPT/HCPCS: 36415; 36416; 36600; 71045; 71250; 74176; 80048; 80053; 80061; 80306; 80307; 81001; 82803; 82962; 83036; 83605; 83735; 83880; 84100; 84145; 84484; 85025; 85651; 86140; 87040; 87086; 87102; 87206; 87641; 93005; 96372; J1450; J1650; J1815; J3475; J3480; J7030; J7050

== ENCOUNTER → 2021-11-30 12:23 | Outpatient (BNVA) | payer MEDICAID, SELFPAY | PROVIDERS: Visit Provider Surgery | DX: Z78.9 Other specified health status (principal) | CPT/HCPCS: 99203 ==

== ENCOUNTER 2021-12-07 11:00 | Day surgery (SDC) | payer MEDICAID, SELFPAY ==
--- NOTE | 2021-12-07 | SCC_ITS ---
Procedure done: 1.Placement of PowerPort via right subclavian vein 2.Fluoroscopic guidance and interpretation for placement of catheter 44.2 seconds of fluoroscopic guidance, for a cumulative dose of 6.45 mGy, was provided to Dr. Graves by the radiology department. C-arm images of the chest were saved for the patient's permanent record. [facility]
--- NOTE | 2021-12-07 11:15 | SC_ITS ---
WS: [id number] INTRAOPERATIVE TECHNIQUE: 2 Spot fluoroscopic images for intraoperative purposes. FLUOROSCOPY TIME: 44.2 seconds CLINICAL INFORMATION: Powerport Placement COMPARISON: None. FINDINGS: RIGHT Port-A-Cath with tip in the mid to distal SVC. No visualized pneumothorax. RIGHT DAY CARE PROVIDER shunt tubin g. SC/C-arm [place] for CVA [id number] IMPRESSION: Images obtained for intraoperative purposes.
[2021-12-07 11:49] VITALS: BP 138/62; PULSE 68; RESP 18; TEMP 36.4; O2SAT 96
[2021-12-07 11:55] VITALS: BMI 25.0
[2021-12-07 12:19] LABS: Glucose Point of Care 150 mg/dL (70-110)
--- NOTE | 2021-12-07 12:20 | ANES.PREANE2 ---
Pre-Anesthetic Assessment Height/Weight: Height 1.37 m Weight 47.188 kg Temp Pulse Resp BP Pulse Ox O2 Del Method 97.5 F L 68 18 138/62 96 12/07/21 11:49 12/07/21 11:49 12/07/21 11:49 12/07/21 11:49 12/07/21 11:49 12/07/21 11:55 Preop Diagnosis: Difficult IV access Operation Date: 12/07/21 13:20 Proposed Procedures p Portacath Placement 49712,Z78.9(Not Applicable) - Cain Graves MD Familial anesthetic complications: None Was Beta Lynne taken within 24 hours: N/A Was Clonidine taken within 24 hours: N/A Last intake: Intake Last Liquid Date 12/06/21 Last Liquid Time 23:00 Last Solid Date 12/06/21 Last Solid Time 20:00 Social No alcohol and No tobacco Exam alert, oriented x 3, clear to auscultation bilaterally and regular rate & rhythm Airway Mallampati: Class II Dentition: full GI ? gastroparesis Metabolic Diabetes Mellitus frequent episodes DKA Neuropsych spina bifida, pressure sores, no sensation in Lower extremity (L4) nonfunctioning CONDOMINIUM MANAGER shunt Anesthetic Plan ASA status: 3 Anesthesia: MAC Risk of > 500 ml blood loss (7ml/kg in children): No Medications/Allergies Home Medications Medication Instructions Recorded Confirmed Last Taken Type biotin 5 mg capsule 5 mg PO DAILY@89906/22/20 12/06/21 08/10/20 History calcium citrate 315 mg 4 tab PO DAILY@89906/22/20 12/06/21 08/10/20 History calcium-vitamin D3 6.25 mcg (250 unit) tablet (Citracal + Vitamin D Maximum) cholecalciferol (vitamin D3) 250 250 mcg PO DAILY@89906/22/20 12/06/21 08/10/20 History mcg (10,000 unit) capsule jiteisbs-wqfipps-cfco-iron 18 1 tab PO DAILY@89906/22/20 12/06/21 08/10/20 History mg-FA 400 mcg-vit K 25 mcg tablet (One-A-Day Women's Complete) potassium gluconate 600 mg (99 mg) 1,800 mg PO DAILY@89906/22/20 12/06/21 08/10/20 History tablet turmeric 400 mg capsule 800 mg PO DAILY@89906/22/20 12/06/21 08/10/20 History zinc 50 mg tablet 50 mg PO DAILY@89906/22/20 12/06/21 08/10/20 History ferrous sulfate 325 mg (65 mg 325 mg PO DAILY@89907/07/20 12/06/21 08/10/20 History iron) tablet oregano oil 1,500 mg capsule 1,500 mg PO DAILY@89907/07/20 12/06/21 08/10/20 History vitamin B complex (B 1 tab PO DAILY@89907/07/20 12/06/21 08/10/20 History Complex-Vitamin B12) vitamin E 200 unit capsule 200 unit PO DAILY@89907/07/20 12/06/21 08/10/20 History blood sugar diagnostic (FreeStyle #100 ea 07/10/20 11/30/21 Unknown Rx Test) blood-glucose meter (OneTouch #1 ea 07/10/20 11/30/21 Unknown Rx Verio Meter) lancets 33 gauge (BD Ultra Fine #100 ea 07/10/20 11/30/21 Unknown Rx Lancets) magnesium 30 mg tablet 30 mg PO DAILY ##0 08/11/20 12/06/21 08/10/20 History insulin glargine 100 unit/mL (3 See Rx Instructions .Route 03/11/21 12/07/21 12/07/21 Rx mL) subcutaneous pen (Lantus .COMPLEX #15 mL 2 Solostar U-100 Insulin) pen needle, diabetic 32 gauge x #360 ea 03/11/21 11/30/21 Unknown Rx 5/32 (BD Polina 2nd Gen Pen Needle) insulin syringe-needle U-100 1 mL #100 ea 03/16/21 11/30/21 Unknown Rx 31 gauge x 5/16 (BD Insulin Syringe Ultra-Fine) blood-glucose meter,continuous #1 ea 03/26/21 11/30/21 Unknown Rx (Dexcom G6 Crime Victim Specialist) blood sugar diagnostic (OneTouch #360 ea 05/10/21 11/30/21 Unknown Rx Verio test strips) blood-glucose sensor (Dexcom G6 #3 ea 09/23/21 11/30/21 Unknown Rx Sensor) blood-glucose transmitter (Dexcom #1 ea 09/23/21 11/30/21 Unknown Rx G6 Transmitter) B-complex with vitamin C 1 cap PO DAILY 10/25/21 12/06/21 Unknown History insulin aspart U-100 100 unit/mL See Rx Instructions SUBCUT TID #15 11/01/21 12/06/21 Unknown Rx (3 mL) subcutaneous pen (Novolog mL Flexpen U-100 Insulin aspart) Astragalus 1,000 mg PO DAILY 12/06/21 12/06/21 Unknown History echinacea 400 mg PO TID 12/06/21 12/06/21 Unknown History Allergies Allergy/AdvReac Type Severity Reaction Status Date / Time latex Allergy rash, Verified 11/30/21 14:22 itchy eyes, respiratory symptoms levofloxacin [From Levaquin] Allergy hair loss, Verified 11/30/21 14:22 stomach upset vancomycin AdvReac red man Verified 11/30/21 14:22 syndrome PFSH Anesthesia Medical History Difficult intravenous access Fusion of spine of thoracic region Osteomyelitis Per patient history it appears this was related to placement of external fixators and multiple trauma from falls Pressure sore Scoliosis Tethering of spinal cord Surgical History History of construction of external stoma of urinary system 01/2020. Due to urethral erosions from pressure injuries History of eye surgery Family History Family/Other Cancer maternal uncle, lung cancer Diabetes maternal uncle Grandfather Cancer skin cancer, paternal Family/Other Cancer maternal uncle, brain cancer Grandmother Diabetes maternal Denies family history of Ovarian cyst CAD (coronary artery disease) Clotting disorder Hyperlipidemia Chronic kidney disease (CKD) Anesthesia complication Bleeding disorder Hypertension Stroke Social History Smoking and tobacco status: never smoked Second hand smoke exposure: Yes Alcohol intake: never Female Reproductive History Date of last menstrual period: 08/06/20 Data Anesthesia Cardiac Studies: No Data to Display
--- NOTE | 2021-12-07 12:24 | W.PM.OPSUD ---
Surgery/Procedure H&P Update DATE OF PROCEDURE: December 07, 2021 DATE H&P PERFORMED: 11/30/21 H&P UPDATE INFORMATION: I have reviewed H&P completed within last 30 days, I have examined patient prior to procedure and No changes to prior documentation PREOP DIAGNOSIS: Difficult IV access PRIMARY INDICATION FOR PROCEDURE: The same PLANNED PROCEDURE: Operation Date: 12/07/21 13:20 Proposed Procedures p Portacath Placement [id number],Z78.9(Not Applicable) - Cain Graves MD
[2021-12-07] MEDS: sodium chloride 0.9% 1,000 ML 30 ML IV (12:33)
[2021-12-07] MEDS: ceFAZolin 2,000 MG in sodium chloride 0.9% (plus) 50 ML 100 MG IV (13:04)
[2021-12-07] MEDS: heparin, porcine 1,000 unit/mL INJ 10 mL 10000 UNIT IRRIGATION (13:31)
--- NOTE | 2021-12-07 14:07 | XRR_ITS ---
PROCEDURE INFORMATION: Exam: XR Chest Exam date and time: 12/07/2021 2:26 PM Age: 41 years old Clinical indication: Device placement; Other: Post placement of right subclavian vein powerport; Prior surgery; Surgery date: Post-operative (0-2 days); Additional info: Status post placement of right subclavian vein powerport, please note as the patient has previous vp rheumatology shunt TECHNIQUE: Imaging protocol: Radiologic exam of the chest. Views: 1 view. COMPARISON: [place] [id number] 10/25/2021 11:47 AM FINDINGS: Tubes, catheters and devices: There is a right central line extending into the proximal SVC. A right CERTIFIED CREDIT COUNSELOR shunt is in place appearing intact Lungs: Unremarkable. No consolidation. Pleural spaces: Unremarkable. No pleural effusion. No pneumothorax. Heart/Mediastinum: Unremarkable. No cardiomegaly. Bones/joints: There is dorsolumbar dextroscoliosis. Metallic rods are present in the lumbar spine XR/XR chest 1V portable [id number] IMPRESSION: 1. No acute findings. 2. Right CERTIFIED CREDIT COUNSELOR shunt in position as described. 3. Right central line in the SVC. 4. Dorsolumbar dextroscoliosis. 5. Metallic rods in the lumbar spine
--- NOTE | 2021-12-07 14:08 | PM.OP ---
Operative Report Date of procedure: December 07, 2021 Pre-op diagnosis: Preop Diagnosis Difficult IV access Post-op diagnosis: The same Procedure done: 1.Placement of PowerPort via right subclavian vein 2.Fluoroscopic guidance and interpretation for placement of catheter Surgeon: Cain Graves MD Director Talent Management: irrigation service technician Ashley Circulating nurse Cari Anesthesia: MAC (Kenia Cota) Estimated blood loss (mL): 25 Procedure: RIGHT SUBCLAVIAN VEIN Patient was identified in the holding area and taken to the operative room and placed in supine position IV propofol was given by the anesthesia provider ,both arms were tucked,Time-out was done verifying the patient's name/date of /planned procedure and destination after the procedure, all were in agreement. SCDs confirmed to be functioning, preoperative antibiotics administered per protocol, and beta brandy protocol was confirmed, appropriate positioning of the patient was done by me. Medications were reviewed to assess for anticoagulant usage. Risks and benefits and prevention of central line associated blood stream infection (CLABSI) were discussed with the patient/CPOA, and a consent was obtained. Monitors were in place and monitored throughout the procedure. All necessary supplies were available prior to start. Hand hygiene was completed prior to starting. Maximum barrier technique was utilized including a sterile gown, sterile gloves with a hat and mask. Site was was prepped with [chlorhexidine] and a full body drape was placed. 5 mL of 2% lidocaine was injected into the skin with a 25 gauge needle. Prep& drape was done under the usual sterile technique, lidocaine 2% was injected at the site of the stick, started by right sub-clavian vein stick that retrieved venous blood was obtained from the first stick, a guide wire was then threaded and under the guidance of fluoroscopy position was confirmed to be in the IVC and my interpretation, there were much PVC changes, at that point the guide wire was secured to the drapes with a hemostat and the needle was taken out, attention was then deviated towards creation of a pocket for the port were lidocaine 1% was injected using an 15 blade knife skin incision was created dissection using the Bovie to create a pocket for the Power Port to be accommodated. Hemostasis was secured, after the port being appropriately flushed it was inserted into the pocket and a tunneler was used to accommodate the catheter of the port catheter to be delivered through the incision first created at the site of the stick, at that point under fluoroscopy an estimated length was measured for the catheter and was cut at the designed level, followed by that a dilator with the sheath introduced onto the guide wire the dilator and the wire were retrieved and the catheter of the port was introduced via the sheath where it was peeled off and the catheter maintained to be in the SVC that was confirmed with fluoroscopy, and the fluoroscopy interpretation was done by me throughout the entire procedure. During access the right subclavian vein and dissection to accommodate the PowerPort extra caution was paid to the placement of the OIL FILTERS INSPECTOR shunt without violating its integrity.There was some scarring appreciated during accessing and placement of the catheter.Particularly at the subclavicular area.Yet ultimately the port was placed without complications. The port was kept in its pocket,3-0 Vicryl deep subdermal interrupted sutures, skin was then closed by 4-0 Monocryl as subcuticular closure.The port was appropriately flushed with heparin and venous blood was withdrawn without difficulty.The stick site was closed by 4-0 Monocryl and Dermabond was used followed by dressing.Count was correct at the end of the procedure.Patient tolerated the procedure well was taken to the recovery area. I was present for the whole entire procedure. Position of the catheter was checked with a postoperative chest x-ray and it was in good position without evidence of pneumothorax
[2021-12-07 14:13] VITALS: BP 108/86; PULSE 93; RESP 18; TEMP 36.1; O2SAT 93
[2021-12-07 14:20] VITALS: BP 114/81; PULSE 110; RESP 18; O2SAT 92
[2021-12-07 14:29] VITALS: BP 114/86; PULSE 104; RESP 18; TEMP 36.1; O2SAT 95
[2021-12-07 14:38] VITALS: BP 130/78; PULSE 99; RESP 18; TEMP 36.2; O2SAT 95
[2021-12-07 14:47] LABS: HCG, Serum Qual Negative (Negative)
[2021-12-07] MEDS: HYDROcodone-acetaminophen 5-325 mg Tablet 1 TAB PO (14:58)
[2021-12-07 15:13] VITALS: BP 132/81; PULSE 92; RESP 18; TEMP 36.2; O2SAT 95
--- NOTE | 2021-12-07 19:11 | ANE.PACU2 ---
Inpatient post-anesthesia follow up: Airway intact: Yes Vital signs: Temperature 97.2 F Pulse Rate 92 Respiratory Rate 18 Blood Pressure 132/81 Pulse Oximetry 95 Oxygen Delivery Me thod Room Air Oxygen Flow Rate 3 Fraction of Inspir ed Oxygen Hydration adequate: Yes Nausea and vomiting: No Pain level: 1 Mental status: Baseline
== END 2021-12-07 15:21 | disposition home or self-care (01) ==
PROVIDERS: Anesthesiology; PCP Family Medicine; Visit Provider Surgery
PROC: (CPT 36561; principal; 2021-12-07 13:20)
DX: Z45.2 Encounter for adjustment and management of vascular access device (principal); E11.9 Type 2 diabetes mellitus without complications; Q05.9 Spina bifida, unspecified; Z98.1 Arthrodesis status; Z79.4 Long term (current) use of insulin
CPT/HCPCS: 36561; 36415; 36416; 71045; 77001; 82962; 84703; C1788; J1644; J2704; J3010; J3490; J7030

== ENCOUNTER → 2022-01-03 09:59 | Outpatient (BNVA) | payer MEDICAID, SELFPAY | PROVIDERS: PCP Family Medicine; Visit Provider Surgery | DX: Z98.890 Other specified postprocedural states (principal) | CPT/HCPCS: 99024 ==

== ENCOUNTER → 2023-01-11 14:45 | Outpatient (BNVA) | payer MEDICAID, SELFPAY | PROVIDERS: PCP Family Medicine; Visit Provider Surgery | DX: Z95.828 Presence of other vascular implants and grafts (principal); Z78.9 Other specified health status | CPT/HCPCS: 99213 ==

== ENCOUNTER 2023-01-19 11:14 | Day surgery (SDC) | payer MEDICAID, SELFPAY ==
[2023-01-18 11:45] VITALS: BMI 25.3
[2023-01-19] VITALS (8 sets, daily range): BP systolic 132–152; BP diastolic 86–99; PULSE 89–121; RESP 16–17; TEMP 36.2–36.4; O2SAT 95–100
--- NOTE | 2023-01-19 12:45 | W.PM.OPSUD ---
Surgery/Procedure H&P Update DATE OF PROCEDURE: January 19, 2023 DATE H&P PERFORMED: 01/11/23 H&P UPDATE INFORMATION: I have reviewed H&P completed within last 30 days, I have examined patient prior to procedure and No changes to prior documentation PLANNED PROCEDURE: Operation Date: 01/19/23 13:05 Proposed Procedures p [id number] placement of port a cath Port a cath removal z78.9(Not Applicable) - Garrison Calvert DO s Portacath Placement(Not Applicable) - Garrison Calvert DO
--- NOTE | 2023-01-19 12:47 | PC.NURSE ---
IV STARTED BY ANESTHESIA, DR KESSLER.
[2023-01-19 12:51] LABS: Glucose Point of Care 183 mg/dL (70-110)
--- NOTE | 2023-01-19 12:54 | ANES.PREANE2 ---
Pre-Anesthetic Assessment Height/Weight: Height 1.37 m Weight 47.627 kg O2 Del Method Room Air 01/19/23 12:44 Operation Date: 01/19/23 13:05 Proposed Procedures p [id number] placement of port a cath Port a cath removal z78.9(Not Applicable) - Garrison Calvert DO s Portacath Placement(Not Applicable) - Garrison Calvert DO Was Beta Lynne taken within 24 hours: N/A Was Clonidine taken within 24 hours: N/A Last intake: Intake Last Liquid Date 01/19/23 Last Liquid Time 06:00 Last Solid Date 01/18/23 Last Solid Time 20:00 Social No alcohol and No tobacco Exam alert, oriented x 3, clear to auscultation bilaterally and regular rate & rhythm Airway Submandibular: within normal limits Cervical ROM: within normal limits Mallampati: Class III History/ROS No significant history except as noted and No significant complaints Metabolic Diabetes Mellitus T1DM Musc/skel s/p AKA Neuropsych Neuropathy Spina bifida Anesthetic Plan ASA status: 3 Anesthesia: MAC Risk of > 500 ml blood loss (7ml/kg in children): No Medications/Allergies Home Medications Medication Instructions Recorded Confirmed Last Taken Type biotin 5 mg capsule 5 mg PO DAILY@89906/22/20 01/18/23 01/18/23 History calcium citrate 315 mg 4 tab PO DAILY@89906/22/20 01/18/23 01/18/23 History calcium-vitamin D3 6.25 mcg (250 unit) tablet (Citracal + Vitamin D Maximum) cholecalciferol (vitamin D3) 250 250 mcg PO DAILY@89906/22/20 01/18/23 01/18/23 History mcg (10,000 unit) capsule sfuaqlau-sritztw-ndyc-iron 18 1 tab PO DAILY@89906/22/20 01/18/23 01/18/23 History mg-FA 400 mcg-vit K 25 mcg tablet (One-A-Day Women's Complete(with vit K)) potassium gluconate 600 mg (99 mg) 1,800 mg PO DAILY@89906/22/20 01/18/23 01/18/23 History tablet turmeric 400 mg capsule 800 mg PO DAILY@89906/22/20 01/18/23 01/18/23 History zinc 50 mg tablet 50 mg PO DAILY@89906/22/20 01/18/23 01/18/23 History ferrous sulfate 325 mg (65 mg 325 mg PO DAILY@89907/07/20 01/18/23 01/18/23 History iron) tablet oregano oil 1,500 mg capsule 1,500 mg PO DAILY@89907/07/20 01/18/23 01/18/23 History vitamin B complex (B 1 tab PO DAILY@89907/07/20 01/18/23 01/18/23 History Complex-Vitamin B12 tablet) vitamin E 200 unit capsule 200 unit PO DAILY@89907/07/20 01/18/23 01/18/23 History blood sugar diagnostic (FreeStyle #100 ea 07/10/20 01/11/23 Unknown Rx Test strips) blood-glucose meter (OneTouch #1 ea 07/10/20 01/11/23 Unknown Rx Verio Meter) magnesium 30 mg tablet 30 mg PO DAILY ##0 08/11/20 01/18/23 01/18/23 History insulin syringe-needle U-100 1 mL #100 ea 03/16/21 01/11/23 Unknown Rx 31 gauge x 5/16 (BD Insulin Syringe Ultra-Fine) blood-glucose meter,continuous #1 ea 03/26/21 01/11/23 Unknown Rx (Dexcom G6 Oxygen Therapy Technician) blood sugar diagnostic (OneTouch #360 ea 05/10/21 01/11/23 Unknown Rx Verio test strips) B-complex with vitamin C 1 cap PO DAILY 10/25/21 01/18/23 01/18/23 History Astragalus 1,000 mg PO DAILY 12/06/21 01/18/23 01/18/23 History echinacea 400 mg PO TID 12/06/21 01/18/23 01/18/23 History blood-glucose sensor (Dexcom G6 #9 ea 03/24/22 01/11/23 Unknown Rx Sensor device) blood-glucose transmitter (Dexcom #1 ea 03/24/22 01/11/23 Unknown Rx G6 Transmitter device) lancets 33 gauge (BD Ultra Fine #450 ea 03/24/22 01/11/23 Unknown Rx Lancets) pen needle, diabetic 32 gauge x #300 ea 06/06/22 01/11/23 Unknown Rx 5/32 (TechLITE Pen Needle) Novolog FlexPen U-100 Insulin 100 See Rx Instructions .Route 10/04/22 01/18/23 01/18/23 Rx unit/mL (3 mL) subcutaneous .COMPLEX #15 mL (insulin aspart U-100) Lantus Solostar U-100 Insulin 100 See Rx Instructions .Route 11/22/22 01/18/23 01/18/23 Rx unit/mL (3 mL) subcutaneous pen .COMPLEX #15 mL (insulin glargine) Allergies Allergy/AdvReac Type Severity Reaction Status Date / Time latex Allergy rash, Verified 01/19/23 11:52 itchy eyes, respiratory symptoms levofloxacin [From Levaquin] Allergy hair loss, Verified 01/19/23 11:52 stomach upset vancomycin AdvReac red man Verified 01/19/23 11:52 syndrome [facility] Anesthesia Medical History (Updated 01/11/23 @ 15:16 by Garrison Calvert DO) Difficult intravenous access Fusion of spine of thoracic region Osteomyelitis Per patient history it appears this was related to placement of external fixators and multiple trauma from falls Pressure sore Scoliosis Tethering of spinal cord Surgical History (Updated 01/11/23 @ 15:16 by Garrison Calvert DO) History of construction of external stoma of urinary system 01/2020. Due to urethral erosions from pressure injuries History of eye surgery Hx of unilateral salpingectomy 08/06/2020 - Left partial salpingectomy. small bladder dome repair. 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 Servin at [place], [place]. Family History Family/Other Cancer maternal uncle, lung cancer Diabetes maternal uncle Grandfather Cancer skin cancer, paternal Family/Other Cancer maternal uncle, brain cancer Grandmother Diabetes maternal Denies family history of Ovarian cyst CAD (coronary artery disease) Clotting disorder Hyperlipidemia Chronic kidney disease (CKD) Anesthesia complication Bleeding disorder Hypertension Stroke Social History Smoking and tobacco status: never smoked Second hand smoke exposure: Yes Alcohol intake: never Substance/Drug Use: never Female Reproductive History Date of last menstrual period: 01/18/23 Data Anesthesia Cardiac Studies: No Data to Display
--- NOTE | 2023-01-19 12:55 | XR_ITS ---
WS: [id number] Portable AP upright chest, 01/19/2023 Clinical Data: Postop Mediport placement Comparison: Portable chest, 12/07/2021 Findings: The right infusion catheter ends in the distal superior vena cava. No pneumothorax is seen. There is a ventriculoperitoneal shunt tube in good position. There are scoliosis rods in the lumbar spine. There is a dextroscoliosis. The heart and lungs are unremarkable. Impression: Satisfactory placement right infusion catheter.
--- NOTE | 2023-01-19 12:55 | SC_ITS ---
WS: [id number] Infusion catheter placement, C-arm fluoroscopy views, 01/19/2023 Clinical Data: Medical replacement Comparison: None. Findings: Dr. Calvert inserted the right infusion catheter which ends at the cavoatrial junction. Impression: Insertion right infusion catheter.
[2023-01-19] MEDS: sodium chloride 0.9% 1,000 ML 30 ML IV (13:00)
[2023-01-19] MEDS: ceFAZolin 2,000 MG in sodium chloride 0.9% (plus) 50 ML 100 MG IV (13:13)
[2023-01-19] MEDS: lidocaine-epi 2% 20 mL INJ INJECTION (13:51)
[2023-01-19] MEDS: heparin, porcine 1,000 unit/mL INJ 10 mL 10000 UNIT INJECTION (13:51)
--- NOTE | 2023-01-19 14:05 | PM.OP ---
Operative Report Date of procedure: January 19, 2023 Pre-op diagnosis: Malfunctioning Mediport Post-op diagnosis: same Procedure done: Mediport removal and replacement Implants: PowerPort Specimens removed/disposition: PowerPort-not sent to pathology Surgeon: Garrison Calvert DO Anesthesia: MAC Estimated blood loss (mL): 5 Complications: None apparent Brief History: This is a very pleasant 42-year-old female who has a Mediport due to poor venous access. The Mediport stopped drawing blood and she wanted it replaced. The risk and benefits were explained and documented. Procedure: The patient was taken to the operating room and placed supine on the operating room table. All bony prominences were padded. She was given IV sedation and monitored throughout the case by the anesthesia personnel. SCDs were placed and turned on. The arms were tucked to the side. Patient received Ancef 2 g preoperatively IV. The bilateral chest wall was prepped and draped in usual sterile fashion using chlorhexidine base prep. Sterile drapes were applied. We did procedure pause prior to beginning. 2% lidocaine with epinephrine was used to anesthetize the previous incision from this Mediport placement. A 15 blade scalpel was then used to open up the old scar. Blunt dissection was performed down to the Mediport which was removed. The catheter tunnel was sewn closed with 3-0 Vicryl suture in a [id number] fashion. An 18 gauge needle was placed in the right subclavian vein. Dark, nonpulsatile blood was aspirated. A guidewire was placed through the needle centrally toward the atrial/vena caval junction. Fluoroscopy visualized good placement. The needle was removed and the guidewire was clipped to the drape with a hemostat. A subcutaneous Mediport pocket was created using Bovie cautery, dissecting down through the skin and subcutaneous tissues. Meticulous hemostasis was achieved. The Mediport was sutured in position using 3-0 vicryl suture x2 stitches. A #15 blade was used to make a small skin maryana around the guidewire insertion area. The Mediport tubing was tunneled through the subcutaneous tissues up to the needle insertion location. A dilator with a peel-away sheath was placed over the guidewire and placed centrally. After measuring the Mediport tubing was cut to length so that the tip would end at the atrial/vena caval junction. The inner cannula and the guidewire were removed, leaving the dilator sheath in place. The Mediport was flushed. The tip of the catheter was inserted through the peel-away sheath and the peel-away sheath removed in the standard fashion. The Mediport was accessed with a straight Rubalcava needle and dark, nonpulsatile blood was aspirated and flushed using heparinized saline to hep-lock the Mediport. Final fluoroscopy visualization showed no kink in the catheter and the tip of the Mediport tubing near the atrial/vena caval junction. Both skin incisions were thoroughly irrigated and suctioned dry. Meticulous hemostasis noted. The dermis was approximated with 3-0 Vicryl in an interrupted fashion. Skin was closed with Dermabond. Patient was awakened from anesthesia and transferred via her cart to the recovery room in stable condition. All needle, sponge, and instrument counts were correct per the operating personnel x2 counts.
[2023-01-19] MEDS: fentaNYL 50 mcg/mL INJ 2mL IVP (14:07)
--- NOTE | 2023-01-19 14:34 | ANE.PACU2 ---
Inpatient post-anesthesia follow up: Airway intact: Yes Vital signs: Temperature 97.5 F Pulse Rate 109 Respiratory Rate 16 Blood Pressure 140/87 Pulse Oximetry 100 Oxygen Delivery Me thod Room Air Oxygen Flow Rate Fraction of Inspir ed Oxygen Hydration adequate: Yes Nausea and vomiting: No Pain level: 2 Mental status: Baseline
== END 2023-01-19 15:22 | disposition home or self-care (01) ==
PROVIDERS: PCP Family Medicine; Visit Provider Surgery
PROC: (CPT 36589; principal; 2023-01-19 12:55)
PROC: (CPT 36561; 2023-01-19 12:55)
DX: T82.594A Other mechanical complication of infusion catheter, initial encounter (principal); Y99.9 Unspecified external cause status; E11.40 Type 2 diabetes mellitus with diabetic neuropathy, unspecified; Z79.4 Long term (current) use of insulin
CPT/HCPCS: 36561; 36590; 36416; 71045; 77001; 82962; C1788; J0690; J1644; J2250; J2704; J3010; J3490; J7030

== ENCOUNTER → 2023-01-31 14:33 | Outpatient (BNVA) | payer MEDICAID, SELFPAY | PROVIDERS: PCP Family Medicine; Visit Provider Surgery | DX: Z95.828 Presence of other vascular implants and grafts (principal) | CPT/HCPCS: 99213 ==

== ENCOUNTER → 2024-01-16 11:39 | Outpatient (BNVA) | payer MEDICAID, SELFPAY | PROVIDERS: PCP Family Medicine; Visit Provider Internal Medicine | DX: E10.9 Type 1 diabetes mellitus without complications (principal); Z79.4 Long term (current) use of insulin; E78.2 Mixed hyperlipidemia | CPT/HCPCS: 99214 ==